=== PATIENT | female | born 1945 | race American Indian/Alaskan Native ===

== ENCOUNTER 2018-06-12 18:16 | Emergency (ER) | payer MEDICARE ==
[2018-06-12 19:06] LABS: Hemoglobin 16.9 gm/dl (10.1-14.3); Mean Corpuscular HGB Conc 34 % (30-34); Mean Corpuscular Volume 91 fl (79-97); Platelet Count 313 K/mm3 (140-440); Red Blood Count 5.42 M/mm3 (3.65-5.03); Red Cell Distribution Width 13.2 % (13.2-15.2)
[2018-06-12 19:17] LABS: Partial Thromboplastin Time 36.7 Sec. (24.2-36.6); Thrombin Time 14.8 Sec. (15.1-19.6)
[2018-06-12 19:21] LABS: Creatine Kinase MB 91.7 ng/mL (0.0-4.0)
--- NOTE | 2018-06-12 19:39 | Cat Scan Report ---
FINAL REPORT EXAM: CT HEAD/BRAIN WO CON HISTORY: right sided weakness, on floor for 2 days TECHNIQUE: CT head without contrast PRIORS: None. FINDINGS: No acute intra-axial or extra-axial hemorrhage is identified. There is no evidence of midline shift or mass effect. The ventricles and sulci are within normal limits. Zuleta-white matter differentiation is intact. No acute parenchymal abnormalities seen. Bony calvarium is grossly intact. Visualized portions of the mastoids and paranasal sinuses are unre markable. IMPRESSION: Negative CT head
[2018-06-12 20:07] LABS: Basophils % (Manual) 0 % (0.0-1.8); Eosinophils % (Manual) 0 % (0.0-4.3); Total Cells Counted 200
[2018-06-12 20:08] LABS: Ovalocytes Few; Poikilocytosis Few
[2018-06-12] MEDS ORDERED: NACL 0.9% 1000 ML 1,000 ML IV ONE ×3 (20:10→23:05)
[2018-06-12] MEDS ORDERED: ROCEPHIN/NS 2 GM/100 ML 2 GM/100 ML BAG IV ONE (20:12)
[2018-06-12] MEDS ORDERED: NACL 0.9% 1000 ML IV ONE (20:18)
--- NOTE | 2018-06-12 20:21 | Emergency Department Report ---
HPI - General Chief Complaint: Fall Time Seen by Provider: 06/12/18 18:26 - HPI HPI: This is a 73-year-old black female who was talked to the ED with generalized weakness, patient had fallen 2 days ago and has not been able to get off the floor. She laid on the floor until she was found today by her neighbors. Patient complained of feeling cold, no nausea no vomiting. She denies any chest pain, shortness of breath. ED Past Medical Hx - Past Medical History Hx Hypertension: Yes Additional medical history: Sleep apnea, "stress induced" muscle spasms - Social History Smoking Status: Never Smoker Substance Use Type: None ED Review of Systems ROS: Stated complaint: RIGHT SIDE WEAKNESS/FALL Other details as noted in HPI Comment: All other systems reviewed and negative Respiratory: denies: cough Cardiovascular: denies: chest pain Genitourinary: denies: urgency Skin: denies: rash Neurological: weakness, numbness, paresthesias, abnormal gait. denies: headache Physical Exam - Physical Exam Vital Signs: Vital Signs 06/12/18 06/12/18 18:37 20:10 Pulse Rate 115 H 108 H Respiratory 16 16 Rate Blood Pressure 129/57 Blood Pressure 139/53 [Left] O2 Sat by Pulse 96 99 Oximetry Physical Exam: - General Limitations: No Limitations General appearance: alert, in mild distress - Head Head exam: Present: atraumatic, normocephalic - Eye Eye exam: Present: normal appearance - ENT ENT exam: Present: mucous membranes moist - Neck Neck exam: Present: normal inspection - Respiratory Respiratory exam: Present: normal lung sounds bilaterally. Absent: respiratory distress - Cardiovascular Cardiovascular Exam: Present: regular rate, normal rhythm. Absent: systolic murmur, diastolic murmur, rubs, gallop - GI/Abdominal GI/Abdominal exam: Present: soft, normal bowel sounds - Extremities Exam Extremities exam: Present: normal inspection - Back Exam Back exam: Present: normal inspection - Neurological Exam Neurological exam: Present: alert, oriented X3 - Psychiatric Psychiatric exam: Present: normal affect, normal mood - Skin Skin exam: Present: warm, dry, intact, normal color. Absent: rash ED Course Vital Signs 06/12/18 06/12/18 18:37 20:10 Pulse Rate 115 H 108 H Respiratory 16 16 Rate Blood Pressure 129/57 Blood Pressure 139/53 [Left] O2 Sat by Pulse 96 99 Oximetry - Reevaluation(s) Reevaluation #1: 06/12/18 23:02 Patient is a [facility] patient, after I called on-call physician for [place] today today recommended that patient be transferred to [place]. Reevaluation #2: 06/12/18 23:05 I spoke with patient regarding the transfer she was understanding and agree with the plan. ED Medical Decision Making - Lab Data Result diagrams: 06/12/18 18:46 06/12/18 18:48 Critical care attestation.: If time is entered above; I have spent that time in minutes in the direct care of this critically ill patient, excluding procedure time. ED Disposition Clinical Impression: Rhabdomyolysis Qualifiers: Rhabdomyolysis type: non-traumatic Qualified Code(s): M62.82 - Rhabdomyolysis Leukocytosis Qualifiers: Leukocytosis type: other Qualified Code(s): D72.828 - Other elevated white blood cell count Disposition: DC/TX-70 ANOTHER TYPE HLTHCARE Is pt being admited?: No Does the pt Need Aspirin: No Condition: Stable Referrals: PRIMARY CARE, [Primary Care Provider] - 3-5 Days
[2018-06-12] MEDS ORDERED: ZITHROMAX 500 MG in NACL 0.9% 250ML 250 ML IV SCH (21:00)
--- NOTE | 2018-06-12 21:35 | XRay Report ---
FINAL REPORT EXAM: XR CHEST 1V AP HISTORY: ams TECHNIQUE: upright single view chest PRIORS: Comparison is dated April 24, 2018 FINDINGS: Cardiac and mediastinal contours are unremarkable. No focal pulmonary infiltrate is identified. No pleural fluid collection seen. Pulmonary vasculature is unremarkable. Noted is a marked scoliosis of the thoracolumbar spine IMPRESSION: No acute abnormality identified in the chest
[2018-06-12 21:50] LABS: Hemolysis Index 0
[2018-06-12 22:30] LABS: Blood Urea Nitrogen 29 mg/dL (7-17)
[2018-06-12 22:31] LABS: Alanine Aminotransferase 85 units/L (7-56); Albumin 3.6 g/dL (3.9-5); BUN/Creatinine Ratio 36; Calcium 8.1 mg/dL (8.4-10.2)
[2018-06-12 23:22] LABS: Bacteria,Urine 2+ /HPF (Negative); Bilirubin,Urine NEG (Negative); Blood,Urine LG (Negative); Color,Urine Amber (Yellow); Hyaline Casts,Urine 7 /LPF; Mucus,Urine FEW /HPF; Urobilinogen,Urine < 2.0 mg/dL (<2.0)
[2018-06-13 01:08] VITALS: BP 139/66
== END 2018-06-13 01:08 | disposition other institution (70) ==
LOC: ED 18:16
DX: M62.82 Rhabdomyolysis (principal); D72.828 Other elevated white blood cell count; I10 Essential (primary) hypertension
CPT/HCPCS: 36415; 70450; 71045; 80053; 81001; 82140; 82550; 82553; 82962; 84484; 85007; 85025; 85610; 85670; 85730; 86850; 86900; 86901; 87040; 87086; 93005; 93010; 96365; 96375; 99285; J0456; J0696; J7030; J7050

== ENCOUNTER 2018-07-30 15:08 | Emergency (ER) | payer MEDICARE ==
[2018-07-30] MEDS ORDERED: NACL 0.9% 500 ML 500 ML IV ONE (15:32)
[2018-07-30] MEDS ORDERED: NACL 0.9% 1000 ML 1,000 ML ONE (15:35)
[2018-07-30 16:10] LABS: Hematocrit 37.3 % (30.3-42.9); Hemoglobin 11.7 gm/dl (10.1-14.3); Mean Corpuscular HGB Conc 32 % (30-34); Mean Corpuscular Volume 99 fl (79-97); Platelet Count 287 K/mm3 (140-440); Red Blood Count 3.78 M/mm3 (3.65-5.03); Red Cell Distribution Width 14.1 % (13.2-15.2)
[2018-07-30 16:20] LABS: INR 0.98 (0.87-1.13)
[2018-07-30 16:41] LABS: Basophils % (Manual) 0 % (0.0-1.8); Eosinophils % (Manual) 0 % (0.0-4.3); Total Cells Counted 100
[2018-07-30 16:42] LABS: Poikilocytosis Few
[2018-07-30] MEDS ORDERED: NACL 0.9% 1000 ML IV ONE (17:21)
[2018-07-30] MEDS ORDERED: ROCEPHIN/NS 1 GM/50 ML 1 GM/50 ML BAG IV SCH (17:21)
--- NOTE | 2018-07-30 17:29 | Emergency Department Report ---
ED General Adult HPI - General Chief complaint: Dyspnea/Respdistress Stated complaint: FALL Time Seen by Provider: 07/30/18 15:34 Source: patient, EMS Mode of arrival: Stretcher Limitations: Other - History of Present Illness Initial comments: Mrs. Araya is a 73-year-old female with history of hypertension, diabetes muscle spasm who presents after prolonged immobilization for the past 4 days. Mrs. Araya explained that she slid out of bed. She was unable to get up on her own. She has been on the floor has 4 days. Her physical therapist heard yelling from outside the home. Arranged to have the door open. EMS contacted. brought patient to the ED. Ms. Araya has diffuse pain generalized. She has headache and neck pain. -: days(s) (4) Location: head Radiation: neck Severity scale (0 -10): 5 Worsens with: none Associated Symptoms: malaise, weakness - Related Data Home Medications Medication Instructions Recorded Confirmed Last Taken Acetaminophen [Tylenol] 500 mg PO Q6HR PRN 07/30/18 07/30/18 Unknown Alendronate Sodium [Fosamax] 70 mg PO QWEEK 07/30/18 07/30/18 Unknown Atorvastatin Calcium [Lipitor] 40 mg PO DAILY 07/30/18 07/30/18 Unknown Ergocalciferol (Vitamin D2) 50,000 unit PO QWEEK 07/30/18 07/30/18 Unknown [Drisdol] Furosemide [Lasix] 20 mg PO QDAY 07/30/18 07/30/18 Unknown Losartan [Cozaar] 100 mg PO QDAY 07/30/18 07/30/18 Unknown Maprotiline HCl 25 mg PO QPM 07/30/18 07/30/18 Unknown Meclizine [Antivert] 12.5 mg PO BID PRN 07/30/18 07/30/18 Unknown Potassium Chloride [Klor-Con M20] 20 meq PO QDAY 07/30/18 07/30/18 Unknown Trihexyphenidyl HCl 5 mg PO BID 07/30/18 07/30/18 Unknown tiZANidine [Zanaflex] 2 - 4 mg PO HS PRN 07/30/18 07/30/18 Unknown traMADol [Ultram] 50 mg PO Q6HR PRN 07/30/18 07/30/18 Unknown Allergies Allergy/AdvReac Type Severity Reaction Status Date / Time No Known Allergies Allergy Verified 06/12/18 18:37 ED Review of Systems ROS: Stated complaint: FALL Other details as noted in HPI Comment: All other systems reviewed and negative Constitutional: malaise Neurological: headache ED Past Medical Hx - Past Medical History Previous Medical History?: Yes Hx Hypertension: Yes Hx Diabetes: Yes (DM2) Additional medical history: Sleep apnea, "stress induced" muscle spasms - Social History Smoking Status: Never Smoker Substance Use Type: None - Medications Home Medications: Home Medications Medication Instructions Recorded Confirmed Last Taken Type Acetaminophen [Tylenol] 500 mg PO Q6HR PRN 07/30/18 07/30/18 Unknown History Alendronate Sodium [Fosamax] 70 mg PO QWEEK 07/30/18 07/30/18 Unknown History Atorvastatin Calcium [Lipitor] 40 mg PO DAILY 07/30/18 07/30/18 Unknown History Ergocalciferol (Vitamin D2) 50,000 unit PO QWEEK 07/30/18 07/30/18 Unknown History [Drisdol] Furosemide [Lasix] 20 mg PO QDAY 07/30/18 07/30/18 Unknown History Losartan [Cozaar] 100 mg PO QDAY 07/30/18 07/30/18 Unknown History Maprotiline HCl 25 mg PO QPM 07/30/18 07/30/18 Unknown History Meclizine [Antivert] 12.5 mg PO BID PRN 07/30/18 07/30/18 Unknown History Potassium Chloride [Klor-Con M20] 20 meq PO QDAY 07/30/18 07/30/18 Unknown History Trihexyphenidyl HCl 5 mg PO BID 07/30/18 07/30/18 Unknown History tiZANidine [Zanaflex] 2 - 4 mg PO HS PRN 07/30/18 07/30/18 Unknown History traMADol [Ultram] 50 mg PO Q6HR PRN 07/30/18 07/30/18 Unknown History ED Physical Exam - General Limitations: Other General appearance: alert, in no apparent distress, other (appears very ill elderly speaks in a whisper) - Head Head exam: Present: atraumatic, normocephalic - Eye Eye exam: Present: normal appearance - ENT ENT exam: Present: mucous membranes dry - Neck Neck exam: Present: normal inspection, full ROM - Respiratory Respiratory exam: Present: normal lung sounds bilaterally. Absent: respiratory distress, wheezes, rales, rhonchi - Cardiovascular Cardiovascular Exam: Present: regular rate, normal rhythm, tachycardia, normal heart sounds. Absent: systolic murmur, diastolic murmur, rubs, gallop - GI/Abdominal GI/Abdominal exam: Present: soft, normal bowel sounds. Absent: distended, tenderness, guarding, rebound - Extremities Exam Extremities exam: Present: normal inspection - Back Exam Back exam: Present: normal inspection - Neurological Exam Neurological exam: Present: alert, oriented X3 - Psychiatric Psychiatric exam: Present: normal affect, normal mood - Skin Skin exam: Present: warm, dry, intact, normal color. Absent: rash ED Course Vital Signs 07/30/18 07/30/18 07/30/18 15:21 15:26 15:31 Pulse Rate 117 H 121 H Respiratory 19 16 17 Rate Blood Pressure 53/16 Blood Pressure 53/16 [Right] O2 Sat by Pulse 100 100 100 Oximetry 07/30/18 07/30/18 07/30/18 15:45 16:00 16:24 Pulse Rate 120 H 120 H Respiratory 15 20 Rate Blood Pressure 159/60 157/55 157/55 Blood Pressure [Right] O2 Sat by Pulse 100 Oximetry 07/30/18 07/30/18 07/30/18 16:30 16:45 17:00 Pulse Rate 112 H 109 H 102 H Respiratory 22 20 16 Rate Blood Pressure 163/53 163/53 149/41 Blood Pressure [Right] O2 Sat by Pulse 100 100 98 Oximetry 07/30/18 07/30/18 07/30/18 17:15 17:30 17:45 Pulse Rate 103 H 100 H 103 H Respiratory 19 17 18 Rate Blood Pressure 149/41 143/52 143/52 Blood Pressure [Right] O2 Sat by Pulse 100 98 Oximetry 07/30/18 07/30/18 07/30/18 18:00 18:15 18:30 Pulse Rate 105 H 102 H 105 H Respiratory 18 16 25 H Rate Blood Pressure 140/46 140/46 164/49 Blood Pressure [Right] O2 Sat by Pulse 100 Oximetry ED Medical Decision Making - Lab Data Result diagrams: 07/30/18 15:59 07/30/18 17:05 - EKG Data 07/30/18 17:27 EKG obtained at 1544 Sinus tachycardia rate 120 beats a minute left axis deviation no ST elevation no signs of ischemia - Medical Decision Making I was called to the bedside for severe hypotension 53/10. I spoke with EMS. I obtain history from both EMS and nursing staff. I was able to palpate radial and DP pulses. I felt that this was a spurious reading. Repeat blood pressure was actually hypertensive 153/70. Patient has acute rhabdomyolysis obvious hypovolemia dehydration with elevated BUN CK approximately 4500. Persistent leukocytosis since June concerning for hematological disorder. Patient did receive a sepsis bundle including ceftriaxone IV fluid I spoke with [place] physician in order to arrange transfer to outside hospital for admission. Accepting physician be Dr. Lowe [facility] Critical Care Time: Yes Critical care time in (mins) excluding proc time.: 50 Critical care attestation.: If time is entered above; I have spent that time in minutes in the direct care of this critically ill patient, excluding procedure time. 50 minutes of critical care time excluding procedures were used in the care of the patient. Patient required multiple assessments and interventions. I reviewed the electronic medical record. I spoke with consultants involved in the care of the patient. ED Disposition Clinical Impression: Rhabdomyolysis, Prolonged immobilization, Leukocytosis, SIRS (systemic inflammatory response syndrome) Disposition: DC/TX-70 ANOTHER TYPE HLTHCARE Is pt being admited?: No Does the pt Need Aspirin: No Condition: Stable
[2018-07-30 17:33] LABS: Alanine Aminotransferase 105 units/L (7-56); BUN/Creatinine Ratio 82; Blood Urea Nitrogen 41 mg/dL (7-17); Calcium 8.5 mg/dL (8.4-10.2); Hemolysis Index 15
--- NOTE | 2018-07-30 17:43 | Cat Scan Report ---
FINAL REPORT EXAM: CT CERVICAL SPINE WO CON HISTORY: fall neck pain TECHNIQUE: Axial helical imaging through the spine with sagittal and coronal reformatted images obta ined. Comparison: None FINDINGS: There is reversal of the normal lordotic curve of the cervical spine. There dextrocurvature of the cervical spine. There is mild anterolisthesis of C3 on C4 secondary to degenerative facet change at this level. The vertebral heights are maintained. There is loss of height of the disc spaces throughout the cervical spine with relative sparing of the C2-C3 and C7-T1 discs. There is multiple level degenerative facet change. Visualization detail of the contents of the cervical canal is limited by artifact. There appears to b e cervical canal stenosis at the cerebral 3-C4 level secondary to spondylitic change. There is no evidence of fracture or posttraumatic subluxation. IMPRESSION: 1. No evidence of fracture or posttraumatic subluxation. 2. Cervical spondylosis.
--- NOTE | 2018-07-30 17:43 | XRay Report ---
FINAL REPORT EXAM: XR CHEST 1V AP HISTORY: possible Sepsis TECHNIQUE: Frontal portable view of the chest Comparison: Chest x-ray dated June 12, 2018 FINDINGS: There is mild prominence of the interstitial markings in both lungs similar in appearance to the prev ious study. There is no evidence of focal infiltrate, pneumothorax or pleural fluid collection. The cardiac silhouette appears to be normal size. The thoracic aorta is tortuous. The bony structures are notable for levocurvature of the lower thoracic and upper lumbar spine. The b an structures are osteopenic. IMPRESSION: 1. No evidence of an acute pulmonary process. No significant change since previous study dated June 12, 2018.
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
[2018-07-30 20:42] LABS: Bilirubin,Urine NEG (Negative); Blood,Urine MOD (Negative); Color,Urine Yellow (Yellow); Mucus,Urine 2+ /HPF; Urobilinogen,Urine < 2.0 mg/dL (<2.0)
[2018-07-30] MEDS ORDERED: NORCO 5/325 ONE (20:48)
[2018-07-30 20:56] VITALS: BP 139/56
[2018-07-30] MEDS ORDERED: NORCO 5/325 PO ONE (21:08)
== END 2018-07-30 21:12 | disposition other institution (70) ==
LOC: ED 15:08
DX: R65.10 Systemic inflammatory response syndrome (SIRS) of non-infectious origin without acute organ dysfunction (principal); M62.82 Rhabdomyolysis; D72.829 Elevated white blood cell count, unspecified; I10 Essential (primary) hypertension; E11.9 Type 2 diabetes mellitus without complications; G47.30 Sleep apnea, unspecified; E86.1 Hypovolemia
CPT/HCPCS: 36415; 70450; 71045; 72125; 80053; 81001; 82140; 82550; 82803; 85007; 85025; 85610; 87040; 87086; 93005; 93010; 96361; 96365; 96366; 99291; J0696; J7030

== ENCOUNTER 2018-08-30 09:18 | Inpatient (IN) | payer MEDICARE ==
[2018-08-30] MEDS ORDERED: NACL 0.9% 500 ML 500 ML IV ONE (10:14)
--- NOTE | 2018-08-30 10:22 | Emergency Department Report ---
ED General Adult HPI - General Chief complaint: Weakness Stated complaint: WEAKNESS Time Seen by Provider: 08/30/18 10:12 Source: patient, EMS Mode of arrival: Stretcher Limitations: No Limitations - History of Present Illness Initial comments: This is a 73-year-old female who pushed her emergency response button on all [employer] like device summoning EMS this morning. She states that she has been recently discharged from [facility]. She is a poor historian. 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 She also has CVA listed as a possible diagnosis. However she does not actually have EMR related documents just handwritten notes. The patient states that she was discharged from rehabilitation 2 days ago. She has not been eating and drinking very well since. I think she is marginally able to provide self care. She reports no home health or family. She states that she was trying to get to the bathroom when she lowered to the floor without injury. She denies loss of consciousness. She states that she was simply too weak to ambulate. She is not complaining of pain at the time of my encounter. -: Gradual, days(s) Severity scale (0 -10): 0 Associated Symptoms: weakness - Related Data Home Medications Medication Instructions Recorded Confirmed Last Taken Acetaminophen [Tylenol] 500 mg PO Q6HR PRN 07/30/18 07/30/18 Unknown Alendronate Sodium [Fosamax] 70 mg PO QWEEK 07/30/18 07/30/18 Unknown Atorvastatin Calcium [Lipitor] 40 mg PO DAILY 07/30/18 07/30/18 Unknown Ergocalciferol (Vitamin D2) 50,000 unit PO QWEEK 07/30/18 07/30/18 Unknown [Drisdol] Furosemide [Lasix] 20 mg PO QDAY 07/30/18 07/30/18 Unknown Losartan [Cozaar] 100 mg PO QDAY 07/30/18 07/30/18 Unknown Maprotiline HCl 25 mg PO QPM 07/30/18 07/30/18 Unknown Meclizine [Antivert] 12.5 mg PO BID PRN 07/30/18 07/30/18 Unknown Potassium Chloride [Klor-Con M20] 20 meq PO QDAY 07/30/18 07/30/18 Unknown Trihexyphenidyl HCl 5 mg PO BID 07/30/18 07/30/18 Unknown tiZANidine [Zanaflex] 2 - 4 mg PO HS PRN 07/30/18 07/30/18 Unknown traMADol [Ultram] 50 mg PO Q6HR PRN 07/30/18 07/30/18 Unknown Allergies Allergy/AdvReac Type Severity Reaction Status Date / Time No Known Allergies Allergy Verified 08/30/18 09:22 ED Review of Systems ROS: Stated complaint: WEAKNESS Other details as noted in HPI Constitutional: weakness (possible near-syncope). denies: chills, fever Eyes: denies: eye pain, eye discharge, vision change ENT: denies: ear pain, throat pain Respiratory: denies: cough, shortness of breath, wheezing Cardiovascular: denies: chest pain, palpitations Endocrine: no symptoms reported Gastrointestinal: other (poor by mouth intake). denies: abdominal pain, nausea, diarrhea Genitourinary: denies: urgency, dysuria, discharge Musculoskeletal: denies: back pain, joint swelling, arthralgia Skin: denies: rash, lesions Neurological: denies: headache, weakness, paresthesias Psychiatric: denies: anxiety, depression Hematological/Lymphatic: denies: easy bleeding, easy bruising ED Past Medical Hx - Past Medical History Hx Hypertension: Yes Hx Diabetes: Yes (DM2) Additional medical history: Sleep apnea, "stress induced" muscle spasms - Social History Smoking Status: Never Smoker Substance Use Type: None - Medications Home Medications: Home Medications Medication Instructions Recorded Confirmed Last Taken Type Acetaminophen [Tylenol] 500 mg PO Q6HR PRN 07/30/18 07/30/18 Unknown History Alendronate Sodium [Fosamax] 70 mg PO QWEEK 07/30/18 07/30/18 Unknown History Atorvastatin Calcium [Lipitor] 40 mg PO DAILY 07/30/18 07/30/18 Unknown History Ergocalciferol (Vitamin D2) 50,000 unit PO QWEEK 07/30/18 07/30/18 Unknown History [Drisdol] Furosemide [Lasix] 20 mg PO QDAY 07/30/18 07/30/18 Unknown History Losartan [Cozaar] 100 mg PO QDAY 07/30/18 07/30/18 Unknown History Maprotiline HCl 25 mg PO QPM 07/30/18 07/30/18 Unknown History Meclizine [Antivert] 12.5 mg PO BID PRN 07/30/18 07/30/18 Unknown History Potassium Chloride [Klor-Con M20] 20 meq PO QDAY 07/30/18 07/30/18 Unknown History Trihexyphenidyl HCl 5 mg PO BID 07/30/18 07/30/18 Unknown History tiZANidine [Zanaflex] 2 - 4 mg PO HS PRN 07/30/18 07/30/18 Unknown History traMADol [Ultram] 50 mg PO Q6HR PRN 07/30/18 07/30/18 Unknown History ED Physical Exam - General Limitations: No Limitations General appearance: alert, in no apparent distress, other (difficulty sitting up on the gurney) - Head Head exam: Present: atraumatic, normocephalic - Eye Eye exam: Present: normal appearance. Absent: scleral icterus - ENT ENT exam: Present: mucous membranes moist - Neck Neck exam: Present: normal inspection. Absent: tenderness, meningismus - Respiratory Respiratory exam: Present: normal lung sounds bilaterally. Absent: respiratory distress - Cardiovascular Cardiovascular Exam: Present: regular rate, normal rhythm. Absent: systolic murmur, diastolic murmur, rubs, gallop - GI/Abdominal GI/Abdominal exam: Present: soft, normal bowel sounds. Absent: distended, te nderness, guarding, rebound, rigid - Extremities Exam Extremities exam: Present: normal inspection - Back Exam Back exam: Present: normal inspection - Neurological Exam Neurological exam: Present: oriented X3, CN II-XII intact (exam somewhat limited). Absent: alert (lethargic), motor sensory deficit (does not appear to be lateralizing) - Psychiatric Psychiatric exam: Present: depressed, other (somewhat tearful) - Skin Skin exam: Present: warm, dry, intact, normal color. Absent: rash ED Course Vital Signs 08/30/18 08/30/18 08/30/18 09:16 09:20 09:22 Temperature 97.9 F Pulse Rate 118 H 120 H 112 H Respiratory 22 21 20 Rate Blood Pressure 156/84 156/84 Blood Pressure [Left] O2 Sat by Pulse 86 97 97 Oximetry 08/30/18 08/30/18 08/30/18 09:26 09:30 09:36 Temperature Pulse Rate 110 H 112 H 111 H Respiratory 14 18 16 Rate Blood Pressure 136/83 136/83 Blood Pressure [Left] O2 Sat by Pulse 96 97 97 Oximetry 08/30/18 08/30/18 08/30/18 09:40 09:45 09:50 Temperature Pulse Rate 106 H 108 H 107 H Respiratory 21 17 20 Rate Blood Pressure 114/72 127/67 Blood Pressure [Left] O2 Sat by Pulse 97 99 97 Oximetry 08/30/18 08/30/18 08/30/18 09:56 10:00 10:06 Temperature Pulse Rate 114 H 110 H 115 H Respiratory 21 17 22 Rate Blood Pressure 127/67 127/67 123/74 Blood Pressure [Left] O2 Sat by Pulse 95 97 97 Oximetry 08/30/18 08/30/18 11:10 14:08 Temperature Pulse Rate 102 H 127 H Respiratory 22 22 Rate Blood Pressure Blood Pressure 167/79 174/78 [Left] O2 Sat by Pulse 96 97 Oximetry ED Medical Decision Making - Lab Data Result diagrams: 08/30/18 10:25 08/30/18 10:25 Laboratory Results - last 24 hr 08/30/18 08/30/18 08/30/18 10:25 10:25 10:25 WBC 9.4 RBC 3.68 Hgb 11.7 Hct 33.7 MCV 92 MCH 32 MCHC 35 H RDW 13.9 Plt Count 328 Lymph % (Auto) 17.3 [facility] % (Auto) 7.6 H Eos % (Auto) 0.5 Baso % (Auto) 0.9 Lymph # 1.6 [facility] # 0.7 Eos # 0.0 Baso # 0.1 Seg Neutrophils % 73.7 H Seg Neutrophils # 6.9 PT 13.1 INR 0.94 APTT 23.9 L D-Dimer 588.77 H VBG pH Sodium Potassium Chloride Carbon Dioxide Anion Gap BUN Creatinine Estimated GFR BUN/Creatinine Ratio Glucose Lactic Acid 0.90 Calcium Magnesium Total Bilirubin Direct Bilirubin Indirect Bilirubin AST ALT Alkaline Phosphatase Total Creatine Kinase CK-MB (CK-2) CK-MB (CK-2) Rel Index Troponin T NT-Pro-B Natriuret Pep Total Protein Albumin Albumin/Globulin Ratio 08/30/18 08/30/18 08/30/18 10:25 10:25 10:25 WBC RBC Hgb Hct MCV MCH MCHC RDW Plt Count Lymph % (Auto) [facility] % (Auto) Eos % (Auto) Baso % (Auto) Lymph # [facility] # Eos # Baso # Seg Neutrophils % Seg Neutrophils # PT INR APTT D-Dimer VBG pH 7.474 H Sodium 140 Potassium 3.2 L Chloride 103.1 Carbon Dioxide 25 Anion Gap 15 BUN 5 L Creatinine 0.4 L Estimated GFR > 60 BUN/Creatinine Ratio 13 Glucose 103 H Lactic Acid Calcium 9.1 Magnesium 2.00 Total Bilirubin 0.50 Direct Bilirubin < 0.2 Indirect Bilirubin 0.3 AST 17 ALT 15 Alkaline Phosphatase 81 Total Creatine Kinase 84 CK-MB (CK-2) 2.3 CK-MB (CK-2) Rel Index 2.7 Troponin T < 0.010 NT-Pro-B Natriuret Pep 124.4 Total Protein 6.6 Albumin 4.0 Albumin/Globulin Ratio 1.5 Critical care attestation.: If time is entered above; I have spent that time in minutes in the direct care of this critically ill patient, excluding procedure time. ED Disposition Clinical Impression: Near syncope, Volume depletion, Elevated d-dimer, Generalized weakness Disposition: OP ADMIT IP TO THIS HOSP Is pt being admited?: Yes Does the pt Need Aspirin: Yes Condition: Stable Time of Disposition: 14:58
[2018-08-30 10:59] LABS: Basophils # (Auto) 0.1 K/mm3 (0.0-0.1); Basophils % (Auto) 0.9 % (0.0-1.8); Eosinophils % (Auto) 0.5 % (0.0-4.3); Hematocrit 33.7 % (30.3-42.9); Hemoglobin 11.7 gm/dl (10.1-14.3); Lymphocytes # (Auto) 1.6 K/mm3 (1.2-5.4); Lymphocytes % (Auto) 17.3 % (13.4-35.0); Mean Corpuscular HGB Conc 35 % (30-34); Mean Corpuscular Volume 92 fl (79-97); Monocytes # (Auto) 0.7 K/mm3 (0.0-0.8); Monocytes % (Auto) 7.6 % (0.0-7.3); Platelet Count 328 K/mm3 (140-440); Red Blood Count 3.68 M/mm3 (3.65-5.03); Red Cell Distribution Width 13.9 % (13.2-15.2)
[2018-08-30 11:07] LABS: Alanine Aminotransferase 15 units/L (7-56); BUN/Creatinine Ratio 13; Bilirubin,Direct < 0.2 mg/dL (0-0.2); Blood Urea Nitrogen 5 mg/dL (7-17); Calcium 9.1 mg/dL (8.4-10.2); Hemolysis Index 8
[2018-08-30 11:24] LABS: Creatine Kinase MB 2.3 ng/mL (0.0-4.0); INR 0.94 (0.87-1.13)
[2018-08-30 11:25] LABS: Partial Thromboplastin Time 23.9 Sec. (24.2-36.6)
--- NOTE | 2018-08-30 12:29 | Cat Scan Report ---
PROCEDURE: CT HEAD/BRAIN WO CON TECHNIQUE: CT examination of the head without IV contrast HISTORY: syncope COMPARISONS: 07/30/2018 FINDINGS: No acute air-fluid level visualized in the included air-filled sinuses. Bone windows demonstrate no acute fracture. There is ventricular and sulcal prominence compatible with global cerebrocortical atrophy. The brain contains no mass, mass effect, hemorrhage, or acute infarct. There is no extra-axial intracranial bleed, brain bleed, or midline shift. IMPRESSION: No acute CVA, intracranial bleed, or brain mass This document is electronically signed by Nato Serra MD., August 30 2018 12:27:14 PM ET
[2018-08-30 12:38] LABS: Bilirubin,Urine NEG (Negative); Blood,Urine NEG (Negative); Color,Urine Straw (Yellow); Protein,Urine <15 mg/dL mg/dL (Negative); Urobilinogen,Urine < 2.0 mg/dL (<2.0)
--- NOTE | 2018-08-30 15:02 | XRay Report ---
PROCEDURE: XR CHEST 1V AP TECHNIQUE: Single AP view of the chest HISTORY: possible Sepsis COMPARISONS: 07/30/2018 FINDINGS: Cardiomediastinal silhouette is within normal limits in appearance. No pulmonary infiltrate, effusion , or pneumothorax. No acute osseous abnormality IMPRESSION: No pulmonary infiltrates are identified. This document is electronically signed by Sudha Zepeda MD., August 30 2018 01:28:44 PM ET
[2018-08-30] MEDS: ATIVAN IV PRN (15:51)
--- NOTE | 2018-08-30 16:02 | History and Physical Report ---
History of Present Illness Date of examination: 08/30/18 Date of admission: 08/30/18 Chief complaint: Generalized weakness/near syncope History of present illness: 73-year-old female patient with significant past medical history of hypertension dyslipidemia Recently admitted to [facility] discharge from rehabilitation 2 days ago and this alone, was brought to the emergency room by EMS when the patient alerted her [employer] emergency button. As per EMS note patient complained of generalized weakness, No history suggestive of loss of consciousness, nausea or vomiting, chest pain or palpitations Initial workup in the ED CT scan negative for acute abnormality Mild hypokalemia Past History Past Medical History: hypertension, hyperlipidemia Past Surgical History: No surgical history Social history: denies: smoking, alcohol abuse, prescription drug abuse Family history: hypertension Medications and Allergies Allergies Allergy/AdvReac Type Severity Reaction Status Date / Time No Known Allergies Allergy Verified 08/30/18 09:22 Home Medications Medication Instructions Recorded Confirmed Last Taken Type Acetaminophen [Tylenol] 500 mg PO Q6HR PRN 07/30/18 07/30/18 Unknown History Alendronate Sodium [Fosamax] 70 mg PO QWEEK 07/30/18 07/30/18 Unknown History Atorvastatin Calcium [Lipitor] 40 mg PO DAILY 07/30/18 07/30/18 Unknown History Ergocalciferol (Vitamin D2) 50,000 unit PO QWEEK 07/30/18 07/30/18 Unknown History [Drisdol] Furosemide [Lasix] 20 mg PO QDAY 07/30/18 07/30/18 Unknown History Losartan [Cozaar] 100 mg PO QDAY 07/30/18 07/30/18 Unknown History Maprotiline HCl 25 mg PO QPM 07/30/18 07/30/18 Unknown History Meclizine [Antivert] 12.5 mg PO BID PRN 07/30/18 07/30/18 Unknown History Potassium Chloride [Klor-Con M20] 20 meq PO QDAY 07/30/18 07/30/18 Unknown History Trihexyphenidyl HCl 5 mg PO BID 07/30/18 07/30/18 Unknown History tiZANidine [Zanaflex] 2 - 4 mg PO HS PRN 07/30/18 07/30/18 Unknown History traMADol [Ultram] 50 mg PO Q6HR PRN 07/30/18 07/30/18 Unknown History Active Meds: Active Medications Lorazepam (Ativan) 1 mg IV Q3H PRN PRN Reason: Anxiety Last Admin: 08/30/18 15:51 Dose: 1 mg Documented by: Review of Systems Constitutional: weight loss, fatigue, weakness Ears, nose, mouth and throat: nasal congestion, nasal discharge Cardiovascular: no chest pain, no orthopnea, no palpitations Respiratory: no cough, no cough with sputum Gastrointestinal: no nausea, no vomiting Musculoskeletal: no neck stiffness, no shooting arm pain, no myalgias, no arthritis Integumentary: no rash, no lesions Neurological: weakness Psychiatric: no memory loss, no depression Endocrine: no cold intolerance, no heat intolerance, no polydipsia, no polyuria Hematologic/Lymphatic: no easy bruising, no easy bleeding Allergic/Immunologic: no urticaria, no allergic rhinitis Exam - Constitutional Vitals: Temp Pulse Resp BP Pulse Ox 97.9 F 127 H 22 174/78 97 08/30/18 09:22 08/30/18 14:08 08/30/18 14:08 08/30/18 14:08 08/30/18 14:08 General appearance: Present: no acute distress, well-nourished, cachectic - EENT Eyes: Present: PERRL, EOM intact - Neck Neck: Present: supple, normal ROM - Respiratory Respiratory effort: normal Respiratory: bilateral: diminished, negative: rales, rhonchi, wheezing - Cardiovascular Rhythm: regular Heart Sounds: Present: S1 & S2 - Extremities Extremities: no ischemia, No edema - Abdominal General gastrointestinal: Present: soft, non-tender, non-distended, normal bowel sounds - Integumentary Integumentary: Present: clear, warm - Musculoskeletal Musculoskeletal: strength equal bilaterally, generalized weakness - Psychiatric Psychiatric: cooperative - Neurologic Neurologic: moves all extremities Results - Labs CBC & Chem 7: 08/30/18 10:25 08/30/18 10:25 Labs: Abnormal lab results 08/30/18 08/30/18 08/30/18 Range/Units 10:25 10:25 10:25 MCHC 35 H (30-34) % Logan % (Auto) 7.6 H (0.0-7.3) % Seg Neutrophils % 73.7 H (40.0-70.0) % APTT 23.9 L (24.2-36.6) Sec. D-Dimer 588.77 H (0-234) ng/mlDDU VBG pH 7.474 H (7.320-7.420) Potassium (3.6-5.0) mmol/L BUN (7-17) mg/dL Creatinine (0.7-1.2) mg/dL Glucose (65-100) mg/dL Urine pH (5.0-7.0) 08/30/18 08/30/18 Range/Units 10:25 11:32 MCHC (30-34) % Logan % (Auto) (0.0-7.3) % Seg Neutrophils % (40.0-70.0) % APTT (24.2-36.6) Sec. D-Dimer (0-234) ng/mlDDU VBG pH (7.320-7.420) Potassium 3.2 L (3.6-5.0) mmol/L BUN 5 L (7-17) mg/dL Creatinine 0.4 L (0.7-1.2) mg/dL Glucose 103 H (65-100) mg/dL Urine pH 8.0 H (5.0-7.0) Assessment and Plan --Generalized weakness and debility Nutrition supplement, physical therapy, occupational therapy, fall precautions. --No syncope; secondary to generalized weakness; physical therapy occupational therapy Rehabilitation and supportive care --Hypokalemia; replace per protocol and monitor --Hypertensionp; resume home antihypertensives and when necessary medications --History of CVA in the past; supportive care --Elevated D dimers; VQ scan to evaluate for PE VQ scan to rule out PE, --DVT prophylaxis --CODE STATUS full code closely monitor the patient and adjust management as needed prophylaxis. I spent 40 minutes coordinating this admission
--- NOTE | 2018-08-30 17:51 | Vascular Lab Report ---
VL VENOUS DUPLEX LE BILAT CLINICAL INDICATION: Female, 73 years of age. elevated d dimers, evalutae for DVT . COMPARISON: None TECHNIQUE: Multiple cabrera-scale, color-flow and doppler waveform images were saved for the permanent digital medi brandie record. FINDINGS: The deep veins of the lower extremities are normal in appearance throughout. Normal venous flow and compressibility is noted. The visualized veins of the calves are also normal. IMPRESSION: No evidence of deep venous thrombosis of either lower extremity. This document is electronically signed by Paulo Tellez DO., August 30 2018 05:49:21 PM ET
[2018-08-30] MEDS: LOVENOX SUB-Q SCH (21:18)
[2018-08-30] MEDS: NACL 0.9% 1000 ML 1,000 ML IV SCH (21:49)
[2018-08-30] MEDS ORDERED: ASPIRIN PO ONE (23:24)
[2018-08-31 08:47] LABS: Basophils # (Auto) 0.1 K/mm3 (0.0-0.1); Basophils % (Auto) 0.8 % (0.0-1.8); Eosinophils # (Auto) 0.1 K/mm3 (0.0-0.4); Eosinophils % (Auto) 1.3 % (0.0-4.3); Hematocrit 36.2 % (30.3-42.9); Lymphocytes # (Auto) 2.3 K/mm3 (1.2-5.4); Lymphocytes % (Auto) 25.9 % (13.4-35.0); Mean Corpuscular HGB Conc 33 % (30-34); Mean Corpuscular Volume 93 fl (79-97); Monocytes # (Auto) 0.7 K/mm3 (0.0-0.8); Monocytes % (Auto) 7.8 % (0.0-7.3); Platelet Count 294 K/mm3 (140-440); Red Blood Count 3.89 M/mm3 (3.65-5.03); Red Cell Distribution Width 13.8 % (13.2-15.2)
[2018-08-31 09:12] LABS: BUN/Creatinine Ratio 13; Blood Urea Nitrogen 4 mg/dL (7-17); Calcium 8.4 mg/dL (8.4-10.2); Hemolysis Index 61
[2018-08-31] MEDS ORDERED: NON-FORMULARY (Losartan [Cozaar] 100 MG) PO SCH (10:00)
[2018-08-31] MEDS: COZAAR PO SCH (10:26)
[2018-08-31] MEDS ORDERED: PNEUMOVAX 23 IM ONE (12:00)
[2018-08-31] MEDS: FLEXERIL PO PRN ×2 (14:04→21:01)
--- NOTE | 2018-08-31 17:12 | Progress Note ---
Assessment and Plan Assessment and plan: --Muscle cramps and spasms; advised plenty of oral fluids, muscle relaxers and supportive care --Generalized weakness and debility Nutrition supplement, physical therapy, occupational therapy, fall precautions. --Near syncope; secondary to generalized weakness; physical therapy occupational therapy Rehabilitation and supportive care --Hypokalemia; dictated --Hypertension; moderate control antihypertensives and when necessary medications --History of CVA in the past; supportive care --Elevated D dimers; check VQ scan to r/or PE Extremity venous Doppler negative for DVT --DVT prophylaxis; Lovenox --CODE STATUS full code --monitor the patient, adjust management as needed prophylaxis. Out of bed to chair Physical therapy occupational therapy Possible discharge in 1-2 days if stable Home with home health History Interval history: Patient seen and examined medical records reviewed Patient feels better , complains of mild intermittent muscle spasms Alert awake oriented 3, Vital signs reviewed Hospitalist Physical - Constitutional Vitals: Temp Pulse Resp BP Pulse Ox 97.9 F 95 H 28 H 147/68 98 08/30/18 19:40 08/31/18 10:00 08/30/18 19:40 08/31/18 10:26 08/30/18 19:40 General appearance: Present: no acute distress, well-nourished, cachectic - EENT Eyes: Present: PERRL, EOM intact - Neck Neck: Present: supple, normal ROM - Respiratory Respiratory effort: normal Respiratory: bilateral: diminished, negative: rales, rhonchi, wheezing - Cardiovascular Rhythm: regular Heart Sounds: Present: S1 & S2 - Extremities Extremities: no ischemia, No edema - Abdominal General gastrointestinal: soft, non-tender, non-distended, normal bowel sounds - Integumentary Integumentary: Present: clear, warm - Psychiatric Psychiatric: appropriate mood/affect, cooperative - Neurologic Neurologic: CNII-XII intact, moves all extremities Results - Labs CBC & Chem 7: 08/31/18 07:48 08/31/18 07:48 Labs: Laboratory Last Values WBC 8.7 K/mm3 (4.5-11.0) 08/31/18 07:48 RBC 3.89 M/mm3 (3.65-5.03) 08/31/18 07:48 Hgb 12.0 gm/dl (10.1-14.3) 08/31/18 07:48 Hct 36.2 % (30.3-42.9) 08/31/18 07:48 MCV 93 fl (79-97) 08/31/18 07:48 MCH 31 pg (28-32) 08/31/18 07:48 MCHC 33 % (30-34) 08/31/18 07:48 RDW 13.8 % (13.2-15.2) 08/31/18 07:48 Plt Count 294 K/mm3 (140-440) 08/31/18 07:48 Lymph % (Auto) 25.9 % (13.4-35.0) 08/31/18 07:48 [place] % (Auto) 7.8 % (0.0-7.3) H 08/31/18 07:48 Eos % (Auto) 1.3 % (0.0-4.3) 08/31/18 07:48 Baso % (Auto) 0.8 % (0.0-1.8) 08/31/18 07:48 Lymph # 2.3 K/mm3 (1.2-5.4) 08/31/18 07:48 [place] # 0.7 K/mm3 (0.0-0.8) 08/31/18 07:48 Eos # 0.1 K/mm3 (0.0-0.4) 08/31/18 07:48 Baso # 0.1 K/mm3 (0.0-0.1) 08/31/18 07:48 Seg Neutrophils % 64.2 % (40.0-70.0) 08/31/18 07:48 Seg Neutrophils # 5.6 K/mm3 (1.8-7.7) 08/31/18 07:48 PT 13.1 Sec. (12.2-14.9) 08/30/18 10:25 INR 0.94 (0.87-1.13) 08/30/18 10:25 APTT 23.9 Sec. (24.2-36.6) L 08/30/18 10:25 D-Dimer 588.77 ng/mlDDU (0-234) H 08/30/18 10:25 VBG pH 7.474 (7.320-7.420) H 08/30/18 10:25 Sodium 142 mmol/L (137-145) 08/31/18 07:48 Potassium 3.7 mmol/L (3.6-5.0) 08/31/18 07:48 Chloride 103.8 mmol/L (98-107) 08/31/18 07:48 Carbon Dioxide 22 mmol/L (22-30) 08/31/18 07:48 Anion Gap 20 mmol/L 08/31/18 07:48 BUN 4 mg/dL (7-17) L 08/31/18 07:48 Creatinine 0.3 mg/dL (0.7-1.2) L 08/31/18 07:48 Estimated GFR > 60 ml/min 08/31/18 07:48 BUN/Creatinine Ratio 13 % 08/31/18 07:48 Glucose 51 mg/dL (65-100) L 08/31/18 07:48 Lactic Acid 0.90 mmol/L (0.7-2.0) 08/30/18 10:25 Calcium 8.4 mg/dL (8.4-10.2) 08/31/18 07:48 Magnesium 2.00 mg/dL (1.7-2.3) 08/30/18 10:25 Total Bilirubin 0.50 mg/dL (0.1-1.2) 08/30/18 10:25 Direct Bilirubin < 0.2 mg/dL (0-0.2) 08/30/18 10:25 Indirect Bilirubin 0.3 mg/dL 08/30/18 10:25 AST 17 units/L (5-40) 08/30/18 10:25 ALT 15 units/L (7-56) 08/30/18 10:25 Alkaline Phosphatase 81 units/L (35-129) 08/30/18 10:25 Total Creatine Kinase 84 units/L (30-135) 08/30/18 10:25 CK-MB (CK-2) 2.3 ng/mL (0.0-4.0) 08/30/18 10:25 CK-MB (CK-2) Rel Index 2.7 (0-4) 08/30/18 10:25 Troponin T < 0.010 ng/mL (0.00-0.029) 08/30/18 10:25 NT-Pro-B Natriuret Pep 124.4 pg/mL (0-900) 08/30/18 10:25 Total Protein 6.6 g/dL (6.3-8.2) 08/30/18 10:25 Albumin 4.0 g/dL (3.9-5) 08/30/18 10:25 Albumin/Globulin Ratio 1.5 % 08/30/18 10:25 Urine Color Straw (Yellow) 08/30/18 11:32 Urine Turbidity Clear (Clear) 08/30/18 11:32 Urine pH 8.0 (5.0-7.0) H 08/30/18 11:32 Ur Specific [place] 1.003 (1.003-1.030) 08/30/18 11:32 Urine Protein <15 mg/dl mg/dL (Negative) 08/30/18 11:32 Urine Glucose (UA) Neg mg/dL (Negative) 08/30/18 11:32 Urine Ketones Tr mg/dL (Negative) 08/30/18 11:32 Urine Blood Neg (Negative) 08/30/18 11:32 Urine Nitrite Neg (Negative) 08/30/18 11:32 Urine Bilirubin Neg (Negative) 08/30/18 11:32 Urine Urobilinogen < 2.0 mg/dL (<2.0) 08/30/18 11:32 Ur Leukocyte Esterase Neg (Negative) 08/30/18 11:32 Urine WBC (Auto) 1.0 /HPF (0.0-6.0) 08/30/18 11:32 Urine RBC (Auto) 1.0 /HPF (0.0-6.0) 08/30/18 11:32 U Epithel Cells (Auto) 1.0 /HPF (0-13.0) 08/30/18 11:32 Active Medications - Current Medications Current Medications: Generic Name Dose Route Start Last Admin Trade Name Freq PRN Reason Stop Dose Admin Atorvastatin Calcium 40 mg 08/31/18 10:00 08/31/18 10:26 Lipitor PO 40 mg DAILY MICHA Administration Cyclobenzaprine HCl 5 mg 08/31/18 13:39 08/31/18 14:04 Flexeril PO 5 mg Q8H PRN Administration Muscle Spasm Enoxaparin Sodium 40 mg 08/30/18 22:00 08/30/18 21:18 Lovenox SUB-Q 40 mg QDAY@2200 MICHA Administration Ergocalciferol 50,000 unit 09/06/18 10:00 Vitamin D2 PO QWEEK MICHA Sodium Chloride 1,000 mls @ 100 mls/hr 08/30/18 17:00 08/30/18 21:49 Nacl 0.9% 1000 Ml IV 100 mls/hr DIRECT MICHA Administration Lorazepam 1 mg 08/30/18 15:45 08/30/18 15:51 Ativan IV 1 mg Q3H PRN Administration Anxiety Losartan Potassium 100 mg 08/31/18 10:00 08/31/18 10:26 Cozaar PO 100 mg QDAY MICHA Administration
[2018-08-31] MEDS: LOVENOX SUB-Q SCH (21:03)
[2018-09-01] MEDS: NACL 0.9% 1000 ML 1,000 ML IV SCH (05:14)
--- NOTE | 2018-09-01 08:23 | Nuclear Medicine Report ---
LUNG SCAN, VENTILATION AND PERFUSION: History: Elevated D. dimers, evaluate for PE. Technique: 5mci of Tc99m MAA was infused for the perfusion images. 15mci XE 133 gas was inhaled for the ventilatory images. Correlation is made with a chest x-ray dated 08/30/18. Findings: Inhalation of Xenon gas demonstrates a normal distribution of the activity throughout both lungs. The wash out phases show no focal retention of activity. After injection of Technetium 99m macroaggregated albumin gamma camera imaging of the lungs in multiple projections demonstrates normal pulmonary contours with a homogeneous distribution of activity. No focal areas of perfusion deficiency are identified. IMPRESSION: Low probability for pulmonary embolus.
--- NOTE | 2018-09-01 08:55 | XRay Report ---
AP CHEST: HISTORY: Elevated D. dimers, evaluate for PE, NM V/Q scan AP view of the chest demonstrates a normal mediastinal and cardiac contour with clear lungs and normal bony and soft tissue structures. IMPRESSION: Unremarkable AP chest.
--- NOTE | 2018-09-01 09:00 | Progress Note ---
Assessment and Plan Assessment and plan: --Muscle cramps and spasms; advised plenty of oral fluids, muscle relaxers and supportive care --Generalized weakness and debility Nutrition supplement, physical therapy, occupational therapy, fall precautions. --Near syncope; secondary to generalized weakness; physical therapy occupational therapy Rehabilitation and supportive care --Hypokalemia; dictated --Hypertension; moderate control antihypertensives and when necessary medications --History of CVA in the past; supportive care --Elevated D dimers; VQ scan low probability for PE Extremity venous Doppler negative for DVT --DVT prophylaxis; Lovenox --CODE STATUS full code --monitor the patient, adjust management as needed prophylaxis. Out of bed to chair Physical therapy occupational therapy Possible discharge in 1-2 days if stable Home with home health Discussed with [facility] physician Dr. Crain , patient's condition treatment and discharge plan History Interval history: Patient seen and examined medical records reviewed No new events reported by nursing staff The patient complains of some muscle cramps Alert awake oriented 3 Vital signs noted Hospitalist Physical - Constitutional Vitals: Temp Pulse Resp BP Pulse Ox 98.3 F 89 18 167/78 100 09/01/18 03:09 09/01/18 08:12 09/01/18 08:12 09/01/18 03:09 09/01/18 03:09 General appearance: Present: no acute distress, well-nourished, cachectic - EENT Eyes: Present: PERRL, EOM intact - Neck Neck: Present: supple, normal ROM - Respiratory Respiratory effort: normal Respiratory: bilateral: diminished, negative: rales, rhonchi, wheezing - Cardiovascular Rhythm: regular Heart Sounds: Present: S1 & S2 - Extremities Extremities: no ischemia, No edema - Abdominal General gastrointestinal: soft, non-tender, non-distended, normal bowel sounds - Integumentary Integumentary: Present: clear, warm - Psychiatric Psychiatric: appropriate mood/affect, cooperative - Neurologic Neurologic: CNII-XII intact, moves all extremities Results - Labs CBC & Chem 7: 08/31/18 07:48 08/31/18 07:48 Labs: Laboratory Last Values WBC 8.7 K/mm3 (4.5-11.0) 08/31/18 07:48 RBC 3.89 M/mm3 (3.65-5.03) 08/31/18 07:48 Hgb 12.0 gm/dl (10.1-14.3) 08/31/18 07:48 Hct 36.2 % (30.3-42.9) 08/31/18 07:48 MCV 93 fl (79-97) 08/31/18 07:48 MCH 31 pg (28-32) 08/31/18 07:48 MCHC 33 % (30-34) 08/31/18 07:48 RDW 13.8 % (13.2-15.2) 08/31/18 07:48 Plt Count 294 K/mm3 (140-440) 08/31/18 07:48 Lymph % (Auto) 25.9 % (13.4-35.0) 08/31/18 07:48 [place] % (Auto) 7.8 % (0.0-7.3) H 08/31/18 07:48 Eos % (Auto) 1.3 % (0.0-4.3) 08/31/18 07:48 Baso % (Auto) 0.8 % (0.0-1.8) 08/31/18 07:48 Lymph # 2.3 K/mm3 (1.2-5.4) 08/31/18 07:48 [place] # 0.7 K/mm3 (0.0-0.8) 08/31/18 07:48 Eos # 0.1 K/mm3 (0.0-0.4) 08/31/18 07:48 Baso # 0.1 K/mm3 (0.0-0.1) 08/31/18 07:48 Seg Neutrophils % 64.2 % (40.0-70.0) 08/31/18 07:48 Seg Neutrophils # 5.6 K/mm3 (1.8-7.7) 08/31/18 07:48 PT 13.1 Sec. (12.2-14.9) 08/30/18 10:25 INR 0.94 (0.87-1.13) 08/30/18 10:25 APTT 23.9 Sec. (24.2-36.6) L 08/30/18 10:25 D-Dimer 588.77 ng/mlDDU (0-234) H 08/30/18 10:25 VBG pH 7.474 (7.320-7.420) H 08/30/18 10:25 Sodium 142 mmol/L (137-145) 08/31/18 07:48 Potassium 3.7 mmol/L (3.6-5.0) 08/31/18 07:48 Chloride 103.8 mmol/L (98-107) 08/31/18 07:48 Carbon Dioxide 22 mmol/L (22-30) 08/31/18 07:48 Anion Gap 20 mmol/L 08/31/18 07:48 BUN 4 mg/dL (7-17) L 08/31/18 07:48 Creatinine 0.3 mg/dL (0.7-1.2) L 08/31/18 07:48 Estimated GFR > 60 ml/min 08/31/18 07:48 BUN/Creatinine Ratio 13 % 08/31/18 07:48 Glucose 51 mg/dL (65-100) L 08/31/18 07:48 Lactic Acid 0.90 mmol/L (0.7-2.0) 08/30/18 10:25 Calcium 8.4 mg/dL (8.4-10.2) 08/31/18 07:48 Magnesium 2.00 mg/dL (1.7-2.3) 08/30/18 10:25 Total Bilirubin 0.50 mg/dL (0.1-1.2) 08/30/18 10:25 Direct Bilirubin < 0.2 mg/dL (0-0.2) 08/30/18 10:25 Indirect Bilirubin 0.3 mg/dL 08/30/18 10:25 AST 17 units/L (5-40) 08/30/18 10:25 ALT 15 units/L (7-56) 08/30/18 10:25 Alkaline Phosphatase 81 units/L (35-129) 08/30/18 10:25 Total Creatine Kinase 84 units/L (30-135) 08/30/18 10:25 CK-MB (CK-2) 2.3 ng/mL (0.0-4.0) 08/30/18 10:25 CK-MB (CK-2) Rel Index 2.7 (0-4) 08/30/18 10:25 Troponin T < 0.010 ng/mL (0.00-0.029) 08/30/18 10:25 NT-Pro-B Natriuret Pep 124.4 pg/mL (0-900) 08/30/18 10:25 Total Protein 6.6 g/dL (6.3-8.2) 08/30/18 10:25 Albumin 4.0 g/dL (3.9-5) 08/30/18 10:25 Albumin/Globulin Ratio 1.5 % 08/30/18 10:25 Urine Color Straw (Yellow) 08/30/18 11:32 Urine Turbidity Clear (Clear) 08/30/18 11:32 Urine pH 8.0 (5.0-7.0) H 08/30/18 11:32 Ur Specific [place] 1.003 (1.003-1.030) 08/30/18 11:32 Urine Protein <15 mg/dl mg/dL (Negative) 08/30/18 11:32 Urine Glucose (UA) Neg mg/dL (Negative) 08/30/18 11:32 Urine Ketones Tr mg/dL (Negative) 08/30/18 11:32 Urine Blood Neg (Negative) 08/30/18 11:32 Urine Nitrite Neg (Negative) 08/30/18 11:32 Urine Bilirubin Neg (Negative) 08/30/18 11:32 Urine Urobilinogen < 2.0 mg/dL (<2.0) 08/30/18 11:32 Ur Leukocyte Esterase Neg (Negative) 08/30/18 11:32 Urine WBC (Auto) 1.0 /HPF (0.0-6.0) 08/30/18 11:32 Urine RBC (Auto) 1.0 /HPF (0.0-6.0) 08/30/18 11:32 U Epithel Cells (Auto) 1.0 /HPF (0-13.0) 08/30/18 11:32 Active Medications - Current Medications Current Medications: Generic Name Dose Route Start Last Admin Trade Name Freq PRN Reason Stop Dose Admin Atorvastatin Calcium 40 mg 08/31/18 10:00 08/31/18 10:26 Lipitor PO 40 mg DAILY MICHA Administration Cyclobenzaprine HCl 5 mg 08/31/18 13:39 08/31/18 21:01 Flexeril PO 5 mg Q8H PRN Administration Muscle Spasm Enoxaparin Sodium 40 mg 08/30/18 22:00 08/31/18 21:03 Lovenox SUB-Q 40 mg QDAY@2200 MICHA Administration Ergocalciferol 50,000 unit 09/06/18 10:00 Vitamin D2 PO QWEEK MICHA Sodium Chloride 1,000 mls @ 100 mls/hr 08/30/18 17:00 09/01/18 05:14 Nacl 0.9% 1000 Ml IV 100 mls/hr DIRECT MICHA Administration Lorazepam 1 mg 08/30/18 15:45 08/30/18 15:51 Ativan IV 1 mg Q3H PRN Administration Anxiety Losartan Potassium 100 mg 08/31/18 10:00 08/31/18 10:26 Cozaar PO 100 mg QDAY MICHA Administration
[2018-09-01] MEDS: FLEXERIL PO PRN (10:58)
[2018-09-01] MEDS: COZAAR PO SCH (10:59)
[2018-09-01] MEDS: ATIVAN IV PRN (13:13)
[2018-09-01] MEDS: LOVENOX SUB-Q SCH (23:04)
[2018-09-02] MEDS: NACL 0.9% 1000 ML 1,000 ML IV SCH ×2 (06:22→18:50)
--- NOTE | 2018-09-02 09:31 | Progress Note ---
Assessment and Plan Assessment and plan: --Muscle cramps and spasms; advised plenty of oral fluids, muscle relaxers and supportive care --Generalized weakness and debility Nutrition supplement, physical therapy, occupational therapy, fall precautions. --Near syncope; secondary to generalized weakness; physical therapy occupational therapy Rehabilitation and supportive care --Hypokalemia; dictated --Hypertension; moderate control antihypertensives and when necessary medications --History of CVA in the past; supportive care --Elevated D dimers; VQ scan low probability for PE Extremity venous Doppler negative for DVT --DVT prophylaxis; Lovenox --CODE STATUS full code --monitor the patient, adjust management as needed prophylaxis. Out of bed to chair Physical therapy occupational therapy Discussed with [place] physician Dr. Crain , patient's condition treatment and discharge plan Patient clinically stable for discharge today History Interval history: Patient seen and examined medical records reviewed No new events reported by the nursing Complaints of generalized weakness Unable to do physical therapy Vital signs noted Hospitalist Physical - Constitutional Vitals: Temp Pulse Resp BP Pulse Ox 98.4 F 87 14 128/66 100 09/02/18 07:53 09/02/18 07:53 09/02/18 07:53 09/02/18 07:53 09/02/18 07:53 General appearance: Present: no acute distress, well-nourished, cachectic - EENT Eyes: Present: PERRL, EOM intact - Neck Neck: Present: supple, normal ROM - Respiratory Respiratory effort: normal Respiratory: bilateral: diminished, negative: rales, rhonchi, wheezing - Cardiovascular Rhythm: regular Heart Sounds: Present: S1 & S2 - Extremities Extremities: no ischemia, No edema - Abdominal General gastrointestinal: soft, non-tender, non-distended, normal bowel sounds - Integumentary Integumentary: Present: clear, warm - Psychiatric Psychiatric: appropriate mood/affect, other (generalized weakness) - Neurologic Neurologic: moves all extremities Results - Labs CBC & Chem 7: 08/31/18 07:48 08/31/18 07:48 Labs: Laboratory Last Values WBC 8.7 K/mm3 (4.5-11.0) 08/31/18 07:48 RBC 3.89 M/mm3 (3.65-5.03) 08/31/18 07:48 Hgb 12.0 gm/dl (10.1-14.3) 08/31/18 07:48 Hct 36.2 % (30.3-42.9) 08/31/18 07:48 MCV 93 fl (79-97) 08/31/18 07:48 MCH 31 pg (28-32) 08/31/18 07:48 MCHC 33 % (30-34) 08/31/18 07:48 RDW 13.8 % (13.2-15.2) 08/31/18 07:48 Plt Count 294 K/mm3 (140-440) 08/31/18 07:48 Lymph % (Auto) 25.9 % (13.4-35.0) 08/31/18 07:48 [place] % (Auto) 7.8 % (0.0-7.3) H 08/31/18 07:48 Eos % (Auto) 1.3 % (0.0-4.3) 08/31/18 07:48 Baso % (Auto) 0.8 % (0.0-1.8) 08/31/18 07:48 Lymph # 2.3 K/mm3 (1.2-5.4) 08/31/18 07:48 [place] # 0.7 K/mm3 (0.0-0.8) 08/31/18 07:48 Eos # 0.1 K/mm3 (0.0-0.4) 08/31/18 07:48 Baso # 0.1 K/mm3 (0.0-0.1) 08/31/18 07:48 Seg Neutrophils % 64.2 % (40.0-70.0) 08/31/18 07:48 Seg Neutrophils # 5.6 K/mm3 (1.8-7.7) 08/31/18 07:48 PT 13.1 Sec. (12.2-14.9) 08/30/18 10:25 INR 0.94 (0.87-1.13) 08/30/18 10:25 APTT 23.9 Sec. (24.2-36.6) L 08/30/18 10:25 D-Dimer 588.77 ng/mlDDU (0-234) H 08/30/18 10:25 VBG pH 7.474 (7.320-7.420) H 08/30/18 10:25 Sodium 142 mmol/L (137-145) 08/31/18 07:48 Potassium 3.7 mmol/L (3.6-5.0) 08/31/18 07:48 Chloride 103.8 mmol/L (98-107) 08/31/18 07:48 Carbon Dioxide 22 mmol/L (22-30) 08/31/18 07:48 Anion Gap 20 mmol/L 08/31/18 07:48 BUN 4 mg/dL (7-17) L 08/31/18 07:48 Creatinine 0.3 mg/dL (0.7-1.2) L 08/31/18 07:48 Estimated GFR > 60 ml/min 08/31/18 07:48 BUN/Creatinine Ratio 13 % 08/31/18 07:48 Glucose 51 mg/dL (65-100) L 08/31/18 07:48 Lactic Acid 0.90 mmol/L (0.7-2.0) 08/30/18 10:25 Calcium 8.4 mg/dL (8.4-10.2) 08/31/18 07:48 Magnesium 2.00 mg/dL (1.7-2.3) 08/30/18 10:25 Total Bilirubin 0.50 mg/dL (0.1-1.2) 08/30/18 10:25 Direct Bilirubin < 0.2 mg/dL (0-0.2) 08/30/18 10:25 Indirect Bilirubin 0.3 mg/dL 08/30/18 10:25 AST 17 units/L (5-40) 08/30/18 10:25 ALT 15 units/L (7-56) 08/30/18 10:25 Alkaline Phosphatase 81 units/L (35-129) 08/30/18 10:25 Total Creatine Kinase 84 units/L (30-135) 08/30/18 10:25 CK-MB (CK-2) 2.3 ng/mL (0.0-4.0) 08/30/18 10:25 CK-MB (CK-2) Rel Index 2.7 (0-4) 08/30/18 10:25 Troponin T < 0.010 ng/mL (0.00-0.029) 08/30/18 10:25 NT-Pro-B Natriuret Pep 124.4 pg/mL (0-900) 08/30/18 10:25 Total Protein 6.6 g/dL (6.3-8.2) 08/30/18 10:25 Albumin 4.0 g/dL (3.9-5) 08/30/18 10:25 Albumin/Globulin Ratio 1.5 % 08/30/18 10:25 Urine Color Straw (Yellow) 08/30/18 11:32 Urine Turbidity Clear (Clear) 08/30/18 11:32 Urine pH 8.0 (5.0-7.0) H 08/30/18 11:32 Ur Specific [place] 1.003 (1.003-1.030) 08/30/18 11:32 Urine Protein <15 mg/dl mg/dL (Negative) 08/30/18 11:32 Urine Glucose (UA) Neg mg/dL (Negative) 08/30/18 11:32 Urine Ketones Tr mg/dL (Negative) 08/30/18 11:32 Urine Blood Neg (Negative) 08/30/18 11:32 Urine Nitrite Neg (Negative) 08/30/18 11:32 Urine Bilirubin Neg (Negative) 08/30/18 11:32 Urine Urobilinogen < 2.0 mg/dL (<2.0) 08/30/18 11:32 Ur Leukocyte Esterase Neg (Negative) 08/30/18 11:32 Urine WBC (Auto) 1.0 /HPF (0.0-6.0) 08/30/18 11:32 Urine RBC (Auto) 1.0 /HPF (0.0-6.0) 08/30/18 11:32 U Epithel Cells (Auto) 1.0 /HPF (0-13.0) 08/30/18 11:32 Active Medications - Current Medications Current Medications: Generic Name Dose Route Start Last Admin Trade Name Freq PRN Reason Stop Dose Admin Atorvastatin Calcium 40 mg 08/31/18 10:00 09/01/18 10:57 Lipitor PO 40 mg DAILY MICHA Administration Cyclobenzaprine HCl 5 mg 08/31/18 13:39 09/01/18 10:58 Flexeril PO 5 mg Q8H PRN Administration Muscle Spasm Enoxaparin Sodium 40 mg 08/30/18 22:00 09/01/18 23:04 Lovenox SUB-Q 40 mg QDAY@2200 MICHA Administration Ergocalciferol 50,000 unit 09/06/18 10:00 Vitamin D2 PO QWEEK MICHA Sodium Chloride 1,000 mls @ 100 mls/hr 08/30/18 17:00 09/02/18 06:22 Nacl 0.9% 1000 Ml IV 100 mls/hr DIRECT MICHA Administration Lorazepam 1 mg 08/30/18 15:45 09/01/18 13:13 Ativan IV 1 mg Q3H PRN Administration Anxiety Losartan Potassium 100 mg 08/31/18 10:00 09/01/18 10:59 Cozaar PO 100 mg QDAY MICHA Administration Nutrition/Malnutrition Assess - Dietary Evaluation Nutrition/Malnutrition Findings: Nutrition Notes Start: 09/01/18 16:49 Freq: Status: Active Protocol: Document 09/01/18 16:49 OL (Rec: 09/01/18 16:52 OL [id number]) Nutrition Notes 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 Pt. sleeping soundly at time of visit. Intakes today are poor, 25-50%. RD will continue to monitor and follow . Burn Absent Trauma Absent #1 Nutrition Diagnosis Inadequate oral intake Etiology decreased appetite As Evidenced by Signs and Symptoms 25-50% of meals consumed today , low BMI for age. Is patient on ventilator? No Is Patient Ambulatory and/or Out of Bed No REE-([facility]-confined to bed) 1046.688 Kcal/Kg value to use for calculation 30 Approximate Energy Requirements Using 1402 kcal/Kg Calculation Used for Recommendations Kcal/kg Additional Notes protein (1.2-1.5g/kg): 56-70g fluid: 1mL/kcal or per MD Nutrition Intervention Change Diet Order: Continue mechanical soft as tolerated Add Supplement/Snack (indicate name/kcal Ensure Enlive daily /protein ) Provides kCal: 350 Provides Protein (gm) 20 Goal #1 Diet to meet 75-100% of nutrient needs. Follow-Up By: 09/03/18 Additional Comments f/u: intakes, ONS tolerance
[2018-09-02] MEDS: COZAAR PO SCH (09:35)
[2018-09-02] MEDS: FLEXERIL PO PRN ×2 (09:43→22:28)
[2018-09-02] MEDS: LOVENOX SUB-Q SCH (22:21)
[2018-09-03] MEDS: NACL 0.9% 1000 ML 1,000 ML IV SCH (04:36)
[2018-09-03] MEDS: COZAAR PO SCH (09:50)
[2018-09-03] MEDS: FLEXERIL PO PRN ×2 (09:51→18:32)
--- NOTE | 2018-09-03 19:44 | Progress Note ---
Assessment and Plan Assessment and plan: --Generalized weakness and debility Nutrition supplement, physical therapy, occupational therapy, fall precautions. --Muscle cramps and spasms; advised plenty of oral fluids, muscle relaxers and supportive care --Near syncope; secondary to generalized weakness; physical therapy occupational therapy Rehabilitation and supportive care --Hypokalemia; dictated --Hypertension; moderate control antihypertensives and when necessary medications --History of CVA in the past; supportive care --Elevated D dimers; VQ scan low probability for PE Extremity venous Doppler negative for DVT --DVT prophylaxis; Lovenox --CODE STATUS full code --monitor the patient, adjust management as needed prophylaxis. Out of bed to chair Physical therapy recommend rehabilitation Discussed with [place] physician Dr. York patient's condition treatment and discharge plan Patient is stable for discharge Pending rehabilitation placement History Interval history: Patient seen and examined medical records reviewed No new events reported by the nursing staff Patient complains of generalized weakness Medically stable for discharge Case management sitting up acute rehabilitation Vital signs noted Hospitalist Physical - Constitutional Vitals: Temp Pulse Resp BP Pulse Ox 97.7 F 102 H 18 153/89 98 09/03/18 17:09 09/03/18 18:57 09/03/18 17:09 09/03/18 17:09 09/03/18 09:49 General appearance: Present: no acute distress, well-nourished, cachectic - EENT Eyes: Present: PERRL, EOM intact - Neck Neck: Present: supple, normal ROM - Respiratory Respiratory effort: normal Respiratory: bilateral: diminished, negative: rales, rhonchi, wheezing - Cardiovascular Rhythm: regular Heart Sounds: Present: S1 & S2 - Extremities Extremities: no ischemia, No edema - Abdominal General gastrointestinal: soft, non-tender, non-distended, normal bowel sounds - Integumentary Integumentary: Present: clear, warm - Psychiatric Psychiatric: appropriate mood/affect, cooperative - Neurologic Neurologic: CNII-XII intact, moves all extremities Results - Labs CBC & Chem 7: 08/31/18 07:48 08/31/18 07:48 Labs: Laboratory Last Values WBC 8.7 K/mm3 (4.5-11.0) 08/31/18 07:48 RBC 3.89 M/mm3 (3.65-5.03) 08/31/18 07:48 Hgb 12.0 gm/dl (10.1-14.3) 08/31/18 07:48 Hct 36.2 % (30.3-42.9) 08/31/18 07:48 MCV 93 fl (79-97) 08/31/18 07:48 MCH 31 pg (28-32) 08/31/18 07:48 MCHC 33 % (30-34) 08/31/18 07:48 RDW 13.8 % (13.2-15.2) 08/31/18 07:48 Plt Count 294 K/mm3 (140-440) 08/31/18 07:48 Lymph % (Auto) 25.9 % (13.4-35.0) 08/31/18 07:48 [place] % (Auto) 7.8 % (0.0-7.3) H 08/31/18 07:48 Eos % (Auto) 1.3 % (0.0-4.3) 08/31/18 07:48 Baso % (Auto) 0.8 % (0.0-1.8) 08/31/18 07:48 Lymph # 2.3 K/mm3 (1.2-5.4) 08/31/18 07:48 [place] # 0.7 K/mm3 (0.0-0.8) 08/31/18 07:48 Eos # 0.1 K/mm3 (0.0-0.4) 08/31/18 07:48 Baso # 0.1 K/mm3 (0.0-0.1) 08/31/18 07:48 Seg Neutrophils % 64.2 % (40.0-70.0) 08/31/18 07:48 Seg Neutrophils # 5.6 K/mm3 (1.8-7.7) 08/31/18 07:48 PT 13.1 Sec. (12.2-14.9) 08/30/18 10:25 INR 0.94 (0.87-1.13) 08/30/18 10:25 APTT 23.9 Sec. (24.2-36.6) L 08/30/18 10:25 D-Dimer 588.77 ng/mlDDU (0-234) H 08/30/18 10:25 VBG pH 7.474 (7.320-7.420) H 08/30/18 10:25 Sodium 142 mmol/L (137-145) 08/31/18 07:48 Potassium 3.7 mmol/L (3.6-5.0) 08/31/18 07:48 Chloride 103.8 mmol/L (98-107) 08/31/18 07:48 Carbon Dioxide 22 mmol/L (22-30) 08/31/18 07:48 Anion Gap 20 mmol/L 08/31/18 07:48 BUN 4 mg/dL (7-17) L 08/31/18 07:48 Creatinine 0.3 mg/dL (0.7-1.2) L 08/31/18 07:48 Estimated GFR > 60 ml/min 08/31/18 07:48 BUN/Creatinine Ratio 13 % 08/31/18 07:48 Glucose 51 mg/dL (65-100) L 08/31/18 07:48 Lactic Acid 0.90 mmol/L (0.7-2.0) 08/30/18 10:25 Calcium 8.4 mg/dL (8.4-10.2) 08/31/18 07:48 Magnesium 2.00 mg/dL (1.7-2.3) 08/30/18 10:25 Total Bilirubin 0.50 mg/dL (0.1-1.2) 08/30/18 10:25 Direct Bilirubin < 0.2 mg/dL (0-0.2) 08/30/18 10:25 Indirect Bilirubin 0.3 mg/dL 08/30/18 10:25 AST 17 units/L (5-40) 08/30/18 10:25 ALT 15 units/L (7-56) 08/30/18 10:25 Alkaline Phosphatase 81 units/L (35-129) 08/30/18 10:25 Total Creatine Kinase 84 units/L (30-135) 08/30/18 10:25 CK-MB (CK-2) 2.3 ng/mL (0.0-4.0) 08/30/18 10:25 CK-MB (CK-2) Rel Index 2.7 (0-4) 08/30/18 10:25 Troponin T < 0.010 ng/mL (0.00-0.029) 08/30/18 10:25 NT-Pro-B Natriuret Pep 124.4 pg/mL (0-900) 08/30/18 10:25 Total Protein 6.6 g/dL (6.3-8.2) 08/30/18 10:25 Albumin 4.0 g/dL (3.9-5) 08/30/18 10:25 Albumin/Globulin Ratio 1.5 % 08/30/18 10:25 Urine Color Straw (Yellow) 08/30/18 11:32 Urine Turbidity Clear (Clear) 08/30/18 11:32 Urine pH 8.0 (5.0-7.0) H 08/30/18 11:32 Ur Specific [place] 1.003 (1.003-1.030) 08/30/18 11:32 Urine Protein <15 mg/dl mg/dL (Negative) 08/30/18 11:32 Urine Glucose (UA) Neg mg/dL (Negative) 08/30/18 11:32 Urine Ketones Tr mg/dL (Negative) 08/30/18 11:32 Urine Blood Neg (Negative) 08/30/18 11:32 Urine Nitrite Neg (Negative) 08/30/18 11:32 Urine Bilirubin Neg (Negative) 08/30/18 11:32 Urine Urobilinogen < 2.0 mg/dL (<2.0) 08/30/18 11:32 Ur Leukocyte Esterase Neg (Negative) 08/30/18 11:32 Urine WBC (Auto) 1.0 /HPF (0.0-6.0) 08/30/18 11:32 Urine RBC (Auto) 1.0 /HPF (0.0-6.0) 08/30/18 11:32 U Epithel Cells (Auto) 1.0 /HPF (0-13.0) 08/30/18 11:32 Active Medications - Current Medications Current Medications: Generic Name Dose Route Start Last Admin Trade Name Freq PRN Reason Stop Dose Admin Atorvastatin Calcium 40 mg 08/31/18 10:00 09/03/18 09:51 Lipitor PO 40 mg DAILY MICHA Administration Cyclobenzaprine HCl 5 mg 08/31/18 13:39 09/03/18 18:32 Flexeril PO 5 mg Q8H PRN Administration Muscle Spasm Enoxaparin Sodium 40 mg 08/30/18 22:00 09/02/18 22:21 Lovenox SUB-Q 40 mg QDAY@2200 MICHA Administration Ergocalciferol 50,000 unit 09/06/18 10:00 Vitamin D2 PO QWEEK MICHA Sodium Chloride 1,000 mls @ 100 mls/hr 08/30/18 17:00 09/03/18 04:36 Nacl 0.9% 1000 Ml IV 100 mls/hr DIRECT MICHA Administration Lorazepam 1 mg 08/30/18 15:45 09/01/18 13:13 Ativan IV 1 mg Q3H PRN Administration Anxiety Losartan Potassium 100 mg 08/31/18 10:00 09/03/18 09:50 Cozaar PO 100 mg QDAY MICHA Administration Nutrition/Malnutrition Assess - Dietary Evaluation Nutrition/Malnutrition Findings: Nutrition Notes Start: 09/01/18 16:4 9 Freq: Status: Active Protocol: Document 09/03/18 12:08 EB (Rec: 09/03/18 12:14 EB [id number]) Co-Sign 09/03/18 12:08 LP Nutrition Notes Initial or Follow up Reassessment Current Diagnosis Hypertension Other Pertinent Diagnosis dyslipidemia Current Diet mechanical soft Labs/Tests Reviewed Pertinent Medications Reviewed Height 4 ft 10 in Weight 46.5 kg [place] Body Weight (kg) 40.90 BMI 21.4 Subjective/Other Information F/U for intakes. Pt finished breakfast at time of visit and consumed about 50%. Pt reports 75% consumption of meals yesterday, and drinks the ONS that is delviered. No reports of recent wt loss, trouble chewing, or swallowing difficulty. Pt reports good appetite. Percent of energy/protein needs met: 95%/100% Burn Absent Trauma Absent #1 Nutrition Diagnosis Inadequate oral intake As Evidenced by Signs and Symptoms pt meeting 95% and 100% of brandie and pro needs, respectively Diagnosis Progress(for reassessment Improved documentation) Is patient on ventilator? No Is Patient Ambulatory and/or Out of Bed No REE-([facility]confined to bed) 1044.060 Kcal/Kg value to use for calculation 30 Approximate Energy Requirements Using 1395 kcal/Kg Calculation Used for Recommendations Kcal/kg Additional Notes protein (1.2-1.5g/kg): 56-70g fluid: 1mL/kcal or per MD Nutrition Intervention Change Diet Order: Continue mechanical soft as tolerated Add Supplement/Snack (indicate name/kcal Ensure Enlive daily /protein ) Provides kCal: 350 Provides Protein (gm) 20 Goal #1 Continue to meet at least 75% brandie and pro needs via PO and ONS intake Follow-Up By: 09/10/18 Additional Comments f/u: intakes, ONS tolerance
[2018-09-03] MEDS: LOVENOX SUB-Q SCH (21:57)
[2018-09-04 08:28] VITALS: BP 158/88
[2018-09-04] MEDS: COZAAR PO SCH (10:16)
[2018-09-04] MEDS: FLEXERIL PO PRN (10:20)
--- NOTE | 2018-09-04 15:19 | Discharge Summary ---
Providers - Providers Date of Admission: 08/30/18 15:15 Date of discharge: 09/04/18 Attending physician: AMADA SALVADOR 08/30/18 12:21 Consult to Case Management [CONS] Urgent Services Needed at Discharge: Home Health Services Notified:: yes 09/01/18 08:58 Physical Therapy Evaluation and Treat [CONS] Routine Comment: Reason For Exam: gen debility /weakness 09/01/18 12:06 Occupational Therapy Evaluate and Treat [CONS] Routine Comment: Reason For Exam: Debility Primary care physician: ORIANA MOREL Hospitalization Reason for admission: generalized weakness, near syncope Condition: Stable Pertinent studies: CT head without contrast; no acute CVA or bleed or mass Lower extremity venous Doppler; no evidence of DVT VQ scan; low probability for PE Chest x-ray; no acute abnormality noted Hospital course: 73-year-old female patient with significant past medical history of hypertension dyslipidemia, was admitted to emergency room with generalized weakness and near syncope Patient was evaluation in the ED CT scan of the head was negative for acute abnormality noted to have mild hypokalemia Symptomatically managed, received physical therapy occupational therapy, had muscle cramps managed appropriately Electrolyte abnormalities was corrected, received physical therapy occupational therapy, case management set up [facility] facility placement The patient is comfortable in no new complaints vital signs stable physical examination is unremarkable Discharge and transfer to [facility] facility today Discharge diagnosis; --Generalized weakness and debility Nutrition supplement, physical therapy, occupational therapy, fall precautions. --Muscle cramps and spasms; advised plenty of oral fluids, muscle relaxers and supportive care --Near syncope; secondary to generalized weakness; physical therapy occupational therapy Rehabilitation and supportive care --Hypokalemia; dictated --Hypertension; moderate control antihypertensives and when necessary medications --History of CVA in the past; supportive care --Elevated D dimers; VQ scan low probability for PE Extremity venous Doppler negative for DVT Disposition: DC/[place]-03 [facility] C[facility] Time spent for discharge: 32 min Core Measure Documentation - Palliative Care Palliative Care/ Comfort Measures: Not Applicable - Core Measures Any of the following diagnoses?: none Exam - Constitutional Vitals: Temp Pulse Resp BP Pulse Ox 98.0 F 105 H 14 158/88 99 09/04/18 07:57 09/04/18 10:16 09/04/18 07:57 09/04/18 10:16 09/04/18 07:57 General appearance: Present: no acute distress, well-nourished - EENT Eyes: Present: PERRL, EOM intact - Neck Neck: Present: supple, normal ROM - Respiratory Respiratory effort: normal Respiratory: bilateral: diminished, rales, rhonchi - Cardiovascular Rhythm: regular Heart Sounds: Present: S1 & S2 - Extremities Extremities: no ischemia, No edema - Abdominal General gastrointestinal: Present: soft, non-tender, non-distended, normal bowel sounds - Integumentary Integumentary: Present: clear, warm - Musculoskeletal Musculoskeletal: strength equal bilaterally, generalized weakness - Psychiatric Psychiatric: appropriate mood/affect, cooperative - Neurologic Neurologic: CNII-XII intact, moves all extremities Plan Activity: advance as tolerated, fall precautions Diet: regular Special Instructions: physical therapy, occupational therapy Additional Instructions: Fall precautions Follow up with: ORIANA MOREL MD [Primary Care Provider] - 3-5 Days
[2018-09-04] MEDS ORDERED: TYLENOL PO ONE (16:12)
[2018-09-06] MEDS ORDERED: VITAMIN D2 PO SCH (10:00)
== END 2018-09-04 17:00 | DRG 312 ==
LOC: ED 09:18 → 2B-ACE 15:15
PROVIDERS: ADMIT Internal Medicine; ATTEND Internal Medicine
PROC: 3E0234Z Introduction of Serum, Toxoid and Vaccine into Muscle, Percutaneous Approach (ICD-10-PCS; principal; 2018-08-31)
DX: R55 Syncope and collapse (principal); E87.6 Hypokalemia; R79.89 Other specified abnormal findings of blood chemistry; R53.1 Weakness; E86.9 Volume depletion, unspecified; I10 Essential (primary) hypertension; E11.9 Type 2 diabetes mellitus without complications; Z82.49 Family history of ischemic heart disease and other diseases of the circulatory system; Z86.73 Personal history of transient ischemic attack (TIA), and cerebral infarction without residual deficits; Z23 Encounter for immunization; Z79.84 Long term (current) use of oral hypoglycemic drugs
CPT/HCPCS: 36415; 70450; 71045; 78582; 80048; 80076; 81001; 82140; 82550; 82553; 82805; 83735; 83880; 84484; 85025; 85379; 85610; 85730; 87040; 87086; 87116; 90732; 93005; 93010; 93970; 96360; 96372; G0378; A9270-GY; A9540; A9558; J1650; J2060; J7030; J7040

== ENCOUNTER 2019-07-03 14:36 | Emergency (ER) | payer MEDICARE ==
--- NOTE | 2019-07-03 16:05 | Event Note ---
ED Screening Note Date of service: 07/03/19 Time: 16:02 ED Screening Note: 74 y/o female comes in for Fall on Saturday night. Having pain in her face, neck and all over. Was sent here by her PCP. This initial assessment/diagnostic orders/clinical plan/treatment(s) is/are subject to change based on patients health status, clinical progression and re- assessment by fellow clinical providers in the ED. Further treatment and workup at subsequent clinical providers discretion. Patient/guardian urged not to elope from the ED as their condition may be serious if not clinically assessed and managed. Initial orders include:
--- NOTE | 2019-07-03 19:11 | Cat Scan Report ---
CT BRAIN: 07/03/2019 INDICATION / CLINICAL INFORMATION: Trauma. COMPARISON: 08/30/2018 FINDINGS: BRAIN/INTRACRANIAL STRUCTURES: Unenhanced CT images of the brain were obtained and compared to the pr ior exam from 08/30/2018. There is been no change. There is no evidence of acute abnormality. Ventricles and sulci are prominent in size, consistent wit h diffuse cerebral atrophy. There is no evidence of hemorrhage or mass. There are no abnormal extra-axial fluid collections. EXTRACRANIAL STRUCTURES: Unremarkable. IMPRESSION: No acute abnormality. All CT scans at this location are performed using dose reduction to ALARA by means of automated expos ure control. Signer Name: Juan Wilcox MD Signed: 07/03/2019 7:07 PM Workstation Name: [id number]
--- NOTE | 2019-07-03 19:14 | Cat Scan Report ---
CT CERVICAL SPINE: 07/03/2019 INDICATION / CLINICAL INFORMATION: neck pain s/p fall. COMPARISON: 07/30/2018 FINDINGS: CT images of the cervical spine were obtained. Images are evaluated in the axial, coronal, and sagitt al planes. Comparison is made to the previous exam from 07/30/2018. Again seen is the severe kyphoscoliosis of the cervical and thoracic spine. There is no evidence of acute abnormality. Degenerative disc and facet changes are present throughout the cervical spine. Degenerative anterolisthesis is present at the C3-4 level. Degenerative disc space narrowing is present at C4-5, C5-6, and C6-7. The bones are diffusely osteopenic. CRANIOCERVICAL JUNCTION: Unremarkable. PARASPINAL STRUCTURES: Unremarkable IMPRESSION: No acute abnormality. No change when compared to the prior exam. All CT scans at this location are performed using dose reduction to ALARA by means of automated expos ure control. Signer Name: Juan Wilcox MD Signed: 07/03/2019 7:10 PM Workstation Name: [id number]
--- NOTE | 2019-07-03 19:16 | Cat Scan Report ---
CT THORACIC SPINE: 30 06/22/2019 INDICATION / CLINICAL INFORMATION: neck pain s/p fall. COMPARISON: None available. FINDINGS: CT images of the thoracic spine were obtained. Images are evaluated in the axial, coronal, and sagitt al planes. Patient has a severe left convex scoliosis of the thoracolumbar spine. The bones are diffusely osteopenic. There is no CT evidence of acute traumatic injury. Vertebral body heights are well preserved. PARASPINAL STRUCTURES: Unremarkable IMPRESSION: No acute abnormality. Scoliosis. Osteopenia. All CT scans at this location are performed using dose reduction to ALARA by means of automated expos ure control. Signer Name: Juan Wilcox MD Signed: 07/03/2019 7:12 PM Workstation Name: [id number]
--- NOTE | 2019-07-03 19:18 | Cat Scan Report ---
CT LUMBAR SPINE: 07/03/2019 INDICATION / CLINICAL INFORMATION: neck pain s/p fall. Trauma COMPARISON: None available. FINDINGS: CT images of the lumbar spine were obtained. Images are evaluated in the axial, coronal, and sagittal planes. There is no evidence of acute abnormality. Patient has a pronounced scoliosis of the thoracolumbar spine. The bones are diffusely and prominently osteopenic. There is no evidence of compression deformity. Degenerative facet changes are prominent at all levels in the lumbar spine. PARASPINAL STRUCTURES: Unremarkable. IMPRESSION: No acute abnormality. Scoliosis. Osteopenia. All CT scans at this location are performed using dose reduction to ALARA by means of automated expos ure control. Signer Name: Juan Wilcox MD Signed: 07/03/2019 7:14 PM Workstation Name: [id number]
--- NOTE | 2019-07-03 20:21 | Emergency Department Report ---
ED Fall HPI - General Chief Complaint: Fall Stated Complaint: FALL Time Seen by Provider: 07/03/19 16:01 Source: patient Mode of arrival: Wheelchair - History of Present Illness Initial Comments: Patient is a 74-year-old female presents emergency room with complaints of a fall that occurred 4 days ago. States that she called her primary care physician today and they recommended for her to be evaluated in the emergency department. She states that she was walking on a concrete pathway near her driveway when her left foot gave out which caused her to face plant. pt states that she has chronic foot drop of both feet and wears braces. She states that she was wearing her braces at the time but her left foot just gave out on her. She denies any chest pain, shortness of breath, dizziness prior to the fall. She denies any loss of consciousness. She states that this morning when she woke up she began to have "pain all over." When asked what is bothering her the most she states that she has head pain, facial pain, right rib pain, left-sided neck pain, left upper arm pain. She denies any vision changes, numbness, acute weakness. She denies any allergies to medications. - Related Data Home Medications Medication Instructions Recorded Confirmed Last Taken Acetaminophen [Acetaminophen TAB] 500 mg PO Q6HR PRN 07/30/18 07/30/18 08/21/18 20:00 Alendronate Sodium [Fosamax] 70 mg PO QWEEK 07/30/18 07/30/18 08/25/18 08:00 Atorvastatin Calcium [Lipitor] 40 mg PO DAILY 07/30/18 07/30/18 08/29/18 10:00 Ergocalciferol (Vitamin D2) 50,000 unit PO QWEEK 07/30/18 07/30/18 08/29/18 08:00 [Drisdol] Furosemide [Lasix] 20 mg PO QDAY 07/30/18 07/30/18 08/29/18 10:00 Losartan [Cozaar] 100 mg PO QDAY 07/30/18 07/30/18 08/28/18 12:00 Maprotiline HCl 25 mg PO QPM 07/30/18 07/30/18 08/29/18 08:00 Meclizine [Antivert] 12.5 mg PO BID PRN 07/30/18 07/30/18 Unknown Potassium Chloride [Klor-Con M20] 20 meq PO QDAY 07/30/18 07/30/18 08/29/18 10:00 Trihexyphenidyl HCl 5 mg PO BID 07/30/18 07/30/18 08/30/18 08:00 tiZANidine [Zanaflex 4mg TAB] 2 - 4 mg PO HS PRN 07/30/18 07/30/18 08/29/18 22:00 traMADoL [Ultram 50 MG tab] 50 mg PO Q6HR PRN 07/30/18 07/30/18 08/27/18 08:00 Previous Rx's Medication Instructions Recorded Last Taken Type Cyclobenzaprine [Flexeril 10 MG 5 mg PO Q8H PRN tablet 09/04/18 Unknown Rx TAB] Acetaminophen [Tylenol] 325 mg PO Q8HR PRN #14 capsule 07/03/19 Unknown Rx traMADoL [Ultram 50 MG tab] 50 mg PO Q8HR PRN #10 tablet 07/03/19 Unknown Rx Allergies Allergy/AdvReac Type Severity Reaction Status Date / Time No Known Allergies Allergy Verified 07/03/19 14:51 ED Review of Systems ROS: Stated complaint: FALL Other details as noted in HPI Comment: All other systems reviewed and negative ED Past Medical Hx - Past Medical History Hx Hypertension: Yes Hx Diabetes: Yes Additional medical history: Sleep apnea, "stress induced" muscle spasms " [facility] [place] - Surgical History Past Surgical History?: No - Social History Smoking Status: Never Smoker Substance Use Type: None - Medications Home Medications: Home Medications Medication Instructions Recorded Confirmed Last Taken Type Acetaminophen [Acetaminophen TAB] 500 mg PO Q6HR PRN 07/30/18 07/30/18 08/21/18 20:00 History Alendronate Sodium [Fosamax] 70 mg PO QWEEK 07/30/18 07/30/18 08/25/18 08:00 History Atorvastatin Calcium [Lipitor] 40 mg PO DAILY 07/30/18 07/30/18 08/29/18 10:00 History Ergocalciferol (Vitamin D2) 50,000 unit PO QWEEK 07/30/18 07/30/18 08/29/18 08:00 History [Drisdol] Furosemide [Lasix] 20 mg PO QDAY 07/30/18 07/30/18 08/29/18 10:00 History Losartan [Cozaar] 100 mg PO QDAY 07/30/18 07/30/18 08/28/18 12:00 History Maprotiline HCl 25 mg PO QPM 07/30/18 07/30/18 08/29/18 08:00 History Meclizine [Antivert] 12.5 mg PO BID PRN 07/30/18 07/30/18 Unknown History Potassium Chloride [Klor-Con M20] 20 meq PO QDAY 07/30/18 07/30/18 08/29/18 10:00 History Trihexyphenidyl HCl 5 mg PO BID 07/30/18 07/30/18 08/30/18 08:00 History tiZANidine [Zanaflex 4mg TAB] 2 - 4 mg PO HS PRN 07/30/18 07/30/18 08/29/18 22:00 History traMADoL [Ultram 50 MG tab] 50 mg PO Q6HR PRN 07/30/18 07/30/18 08/27/18 08:00 History Cyclobenzaprine [Flexeril 10 MG 5 mg PO Q8H PRN tablet 09/04/18 Unknown Rx TAB] Acetaminophen [Tylenol] 325 mg PO Q8HR PRN #14 capsule 07/03/19 Unknown Rx traMADoL [Ultram 50 MG tab] 50 mg PO Q8HR PRN #10 tablet 07/03/19 Unknown Rx ED Physical Exam - General Limitations: Physical Limitation General appearance: alert, in no apparent distress, other (thin, frail) - Head Head exam: Present: atraumatic, normocephalic - Eye Eye exam: Present: PERRL, EOMI, other (cataracts bilaterally). Absent: periorbital swelling, periorbital tenderness - ENT ENT exam: Present: mucous membranes moist, other (no bony facial TTP, no ecchymosis, no deformities, FROM of the TMJ, no nasal bone TTP, nasal septum is midline, no racoon eyes, no signs of entrapement) - Neck Neck exam: Present: normal inspection, tenderness (left sided C-spine paraspinal TTP and left sided trapezius TTP, no midline C-spine tenderness, chronic scoliosis of the spine, no step offs), full ROM, other - Respiratory Respiratory exam: Present: normal lung sounds bilaterally, chest wall tenderness (mild right anterior rib TTP, no ecchymosis, no deformity, no crepitus). Absent: respiratory distress, wheezes, rales, rhonchi, stridor, accessory muscle use, decreased breath sounds, prolonged expiratory - Cardiovascular Cardiovascular Exam: Present: regular rate, normal rhythm, normal heart sounds. Absent: systolic murmur, diastolic murmur, rubs, gallop - GI/Abdominal GI/Abdominal exam: Present: soft, normal bowel sounds. Absent: distended, tenderness, guarding, rebound, rigid - Extremities Exam Extremities exam: Present: other (no bony TTP of the BUE, FROM of the BUE, neurovascularly intact in the BUE) - Back Exam Back exam: Present: other (chronic scoliosis of the spine, no midline spinal or paraspinal T-spine or L-spine tenderness, no step offs). 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 Absent: motor sensory deficit - Psychiatric Psychiatric exam: Present: normal affect, normal mood - Skin Skin exam: Present: warm, dry, intact, normal color ED Course Vital Signs 07/03/19 07/03/19 07/03/19 15:43 16:01 20:53 Temperature 98.8 F 98.8 F 98.6 F Pulse Rate 100 H 102 H 76 Respiratory 20 20 16 Rate Blood Pressure 165/84 165/84 Blood Pressure 167/83 [Left] O2 Sat by Pulse 95 96 98 Oximetry ED Medical Decision Making - Radiology Data Radiology results: report reviewed CT THORACIC SPINE: 30 06/22/2019 INDICATION / CLINICAL INFORMATION: neck pain s/p fall. COMPARISON: None available. FINDINGS: CT images of the thoracic spine were obtained. Images are evaluated in the axial, coronal, and sagittal planes. Patient has a severe left convex scoliosis of the thoracolumbar spine. The bones are diffusely osteopenic. There is no CT evidence of acute traumatic injury. Vertebral body heights are w ell preserved. PARASPINAL STRUCTURES: Unremarkable IMPRESSION: No acute abnormality. Scoliosis. Osteopenia. All CT scans at this location are performed using dose reduction to ALARA by janice jiménez of automated exposure control. Signer Name: Juan Wilcox MD Signed: 07/03/2019 7:12 PM Workstation Name: [id number] Transcribed By: DON Dictated By: Juan Wilcox MD Electronically Authenticated By: Juan Wilcox MD Signed Date/Time: 07/03/191911 DD/ 09 TD/TT: CT LUMBAR SPINE: 07/03/2019 INDICATION / CLINICAL INFORMATION: neck pain s/p fall. Trauma COMPARISON: None available. FINDINGS: CT images of the lumbar spine were obtained. Images are evaluated in the axial, coronal, and sagittal planes. There is no evidence of acute abnormality. Patient has a pronounced scoliosis of the thoracolumbar spine. The bones are diffusely and prominently osteopenic. There is no evidence of compression deformity. Degenerative facet changes are prominent at all levels in the lumbar spine. PARASPINAL STRUCTURES: Unremarkable. IMPRESSION: No acute abnormality. Scoliosis. Osteopenia. All CT scans at this location are performed using dose reduction to ALARA by janice jiménez of automated exposure control. Signer Name: Juan Wilcox MD Signed: 07/03/2019 7:14 PM Workstation Name: [id number] Transcribed By: DON Dictated By: Juan Wilcox MD Electronically Authenticated By: Juan Wilcox MD Signed Date/Time: 07/03/191913 DD/ 11 TD/TT: CT CERVICAL SPINE: 07/03/2019 INDICATION / CLINICAL INFORMATION: neck pain s/p fall. COMPARISON: 07/30/2018 FINDINGS: CT images of the cervical spine were obtained. Images are evaluated in the axial, coronal, and sagittal planes. Comparison is made to the previous exam from 07/30/2018. Again seen is the severe kyphoscoliosis of the cervical and thoracic spine. There is no evidence of acute abnormality. Degenerative disc and facet changes are present throughout the cervical spine. Degenerative anterolisthesis is present at the C3-4 level. Degenerative disc space narrowing is present at C4-5, C5-6, and C6-7. The bones are diffusely osteopenic. CRANIOCERVICAL JUNCTION: Unremarkable. PARASPINAL STRUCTURES: Unremarkable IMPRESSION: No acute abnormality. No change when compared to the prior exam. All CT scans at this location are performed using dose reduction to ALARA by means of automated exposure control. Signer Name: Juan Wilcox MD Signed: 07/03/2019 7:10 PM Workstation Name: [id number] Transcribed By: DON Dictated By: Juan Wilcox MD Electronically Authenticated By: Juan Wilcox MD Signed Date/Time: 07/03/191909 DD/ 06 TD/TT: CT BRAIN: 07/03/2019 INDICATION / CLINICAL INFORMATION: Trauma. COMPARISON: 08/30/2018 FINDINGS: BRAIN/INTRACRANIAL STRUCTURES: Unenhanced CT images of the brain were obtained and compared to the prior exam from 08/30/2018. There is been no change. There is no evidence of acute abnormality. Ventricles and sulci are prominent in size, consistent with diffuse cerebral atrophy. There is no evidence of hemorrhage or mass. There are no abnormal extra-axial fluid collections. EXTRACRANIAL STRUCTURES: Unremarkable. IMPRESSION: No acute abnormality. All CT scans at this location are performed using dose reduction to ALARA by means of automated exposure control. Signer Name: Juan Wilcox MD Signed: 07/03/2019 7:07 PM Workstation Name: [id number] Transcribed By: DON Dictated By: Juan Wilcox MD Electronically Authenticated By: uJan Wilcox MD Signed Date/Time: 07/03/191906 DD/ 02 TD/TT: - Medical Decision Making Patient is a 74-year-old female presents emergency room with complaints of a fall that occurred 4 days ago. States that she called her primary care raina nuñez today and they recommended for her to be evaluated in the emergency department. She states that she was walking on a concrete pathway near her driveway when her left foot gave out which caused her to face plant. pt states that she has chronic foot drop of both feet and wears braces. She states that she was wearing her braces at the time but her left foot just gave out on her. She denies any chest pain, shortness of breath, dizziness prior to the fall. She denies any loss of consciousness. She states that this morning when she woke up she began to have "pain all over." When asked what is bothering her the most she states that she has head pain, facial pain, right rib pain, left-sided neck pain, left upper arm pain. She denies any vision changes, numbness, acute weakness. She denies any allergies to medications. initial vitals with mildly elevated HR which improved upon repeat. on exam: no bony facial TTP, no ecchymosis, no deformities, FROM of the TMJ, no nasal bone TTP, nasal septum is midline, no racoon eyes, no signs of entrapement, left sided C-spine paraspinal TTP and left sided trapezius TTP, no midline C-spine tenderness, chronic scoliosis of the spine, no step offs, mild right anterior rib TTP, no ecchymosis, no deformity, no crepitus, no bony TTP of the BUE, FROM of the BUE, neurovascularly intact in the BUE, chronic scoliosis of the spine, no midline spinal or paraspinal T-spine or L-spine tenderness, no step offs, normal finger to nose, normal heel to thompson, 5/5 strength in the BUE/BLE, sensation intact throughout, 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 imaging ordered prior to my examination secondary to pt stating she had pain all over and given her age and that she is very frail with chronic bone changes. CT C-spine, T-spine and L-spine: No acute abnormality.Scoliosis.Osteopenia. CT head: no acute abnormality. discussed imaging with pt, she states that she is already on medication for the osteopenia. pt given prescription for tylenol and tramadol to take as needed for her pain. advised pt to be careful while taking the tramadol secondary to potential for drowsiness and off balance, she verbalized understanding. advised pt Please take medication as prescribed as needed. Do not drive or operate heavy machinery while taking tramadol due to potential for drowsiness. May use ice pack, heating pad, rest, epsom salt bath. Follow-up with your primary care doctor in the next 2-3 days for reexamination. Return to the emergency room immediately for any new or worsening symptoms. - Differential Diagnosis strain, sprain fx, dislocation, disc herniation, SDH, ICH, skull fx, SAH Critical care attestation.: If time is entered above; I have spent that time in minutes in the direct care of this critically ill patient, excluding procedure time. ED Disposition Clinical Impression: Rib pain on right side, Neck pain, Facial pain, Left upper arm pain Fall with injury Qualifiers: Encounter type: initial encounter Qualified Code(s): W19.XXXA - Unspecified fall, initial encounter Minor head injury Qualifiers: Encounter type: initial encounter Qualified Code(s): S09.90XA - Unspecified injury of head, initial encounter Strain of left trapezius muscle Qualifiers: Encounter type: initial encounter Qualified Code(s): S46.812A - Strain of other muscles, fascia and tendons at shoulder and upper arm level, left arm, initial encounter Scoliosis Qualifiers: Scoliosis type: unspecified scoliosis Spinal region: unspecified Qualified Code(s): M41.9 - Scoliosis, unspecified Osteopenia Qualifiers: Osteopenia location: unspecified Qualified Code(s): M85.80 - Other specified disorders of bone density and structure, unspecified site Disposition: TO HOME OR SELFCARE Is pt being admited?: No Does the pt Need Aspirin: No Condition: Stable Instructions: Muscle Strain (ED), Minor Head Injury (ED), Arthralgia (ED) Additional Instructions: Please take medication as prescribed as needed. Do not drive or operate heavy machinery while taking tramadol due to potential for drowsiness. May use ice pack, heating pad, rest, epsom salt bath. Follow-up with your primary care doctor in the next 2-3 days for reexamination. Return to the emergency room immediately for any new or worsening symptoms. Prescriptions: Acetaminophen [Tylenol] 325 mg PO Q8HR PRN #14 capsule PRN Reason: Pain, Moderate (4-6) traMADoL [Ultram 50 MG tab] 50 mg PO Q8HR PRN #10 tablet PRN Reason: Pain , Severe (7-10) Referrals: NITHYA LEON JR, MD [Primary Care Provider] - 2-3 Days Time of Disposition: 20:28 Print Language: TURKMEN
[2019-07-03 20:54] VITALS: BP 167/83
== END 2019-07-03 20:58 | disposition home or self-care (01) ==
LOC: ED 14:36
DX: S46.812A Strain of other muscles, fascia and tendons at shoulder and upper arm level, left arm, initial encounter (principal); S09.90XA Unspecified injury of head, initial encounter; M85.80 Other specified disorders of bone density and structure, unspecified site; M41.9 Scoliosis, unspecified; R07.81 Pleurodynia; I10 Essential (primary) hypertension; E11.9 Type 2 diabetes mellitus without complications; R51 Headache; Z79.899 Other long term (current) drug therapy; W18.39XA Other fall on same level, initial encounter; Y93.89 Activity, other specified; Y92.89 Other specified places as the place of occurrence of the external cause; Y99.8 Other external cause status
CPT/HCPCS: 70450; 72125; 72128; 72131

== ENCOUNTER 2019-12-31 21:39 | Emergency (ER) | payer MEDICARE ==
--- NOTE | 2019-12-31 23:34 | XRay Report ---
[facility] ONE VIEW INDICATION / CLINICAL INFORMATION: Pelvic pain/injury after fall. COMPARISON: None available. FINDINGS: BONES and JOINT(S): No acute fracture or subluxation. No significant arthritis. SOFT TISSUES: No significant abnormality. ADDITIONAL FINDINGS: None. IMPRESSION: 1. No acute findings. Signer Name: Rosalio Madison MD Signed: 12/31/2019 11:30 PM Workstation Name: [id number]
--- NOTE | 2019-12-31 23:44 | Cat Scan Report ---
CT HEAD WITHOUT CONTRAST INDICATION : Head injury after fall. TECHNIQUE: Axial, coronal and sagittal CT imaging was performed from the skull apex through the skul l base without contrast. All CT scans at this location are performed using CT dose reduction for ALA RA by means of automated exposure control. COMPARISON: CT head without contrast from 07/03/2019. FINDINGS: PARENCHYMA: No mass, midline shift, hemorrhage, extraaxial collection or acute territorial infarctio n. Mild generalized atrophy with probable chronic microvascular ischemic changes along the periventr icular white matter. VENTRICLES: Symmetric and normal in size. SOFT TISSUES: No significant abnormality of the included soft tissues/orbits. BONES: No acute osseous abnormality. SINUSES: No significant abnormality. ADDITIONAL FINDINGS: None. IMPRESSION: 1. No acute intracranial abnormality. Signer Name: Rosalio Madison MD Signed: 12/31/2019 11:39 PM Workstation Name: [id number]
--- NOTE | 2019-12-31 23:51 | Cat Scan Report ---
CT CERVICAL SPINE WITHOUT CONTRAST INDICATION: Head/neck injury after fall. COMPARISON: CT cervical spine without contrast from 07/03/2019. TECHNIQUE: Axial, coronal and sagittal CT imaging of the cervical spine without contrast was performe d. All CT scans at this location are performed using CT dose reduction for ALARA by means of automat ed exposure control. FINDINGS: VERTEBRAE:No acute fracture. Moderate Dextroscoliosis with grade 1 anterolisthesis at C3-C4. DISC SPACES: Multilevel [id number] discogenic degenerative changes. FACET JOINTS:Multilevel left facet hypertrophy, most notable at C2-C3. CENTRAL CANAL: No significant central canal stenosis. Similar moderate left neural foraminal narrowin g at C2-C3. SOFT TISSUES:No significant abnormality. LUNG APICES: No acute abnormality. Similar probable chronic parenchymal changes bilateral. ADDITIONAL FINDINGS: None IMPRESSION: 1. No acute findings. 2. Additional findings as above are similar to the prior CT from 07/03/2019. Signer Name: Rosalio Madison MD Signed: 12/31/2019 11:46 PM Workstation Name: [id number]
[2020-01-01 00:16] LABS: Basophils % (Auto) 0.2 % (0.0-1.8); Eosinophils % (Auto) 0.2 % (0.0-4.3); Hematocrit 35.6 % (30.3-42.9); Hemoglobin 11.9 gm/dl (10.1-14.3); Lymphocytes # (Auto) 0.7 K/mm3 (1.2-5.4); Lymphocytes % (Auto) 9.5 % (13.4-35.0); Mean Corpuscular HGB Conc 33 % (30-34); Mean Corpuscular Volume 94 fl (79-97); Monocytes # (Auto) 0.4 K/mm3 (0.0-0.8); Monocytes % (Auto) 4.7 % (0.0-7.3); Platelet Count 242 K/mm3 (140-440); Red Blood Count 3.78 M/mm3 (3.65-5.03)
[2020-01-01 00:17] LABS: Alanine Aminotransferase 21 units/L (7-56); Albumin 4.4 g/dL (3.9-5); Blood Urea Nitrogen 17 mg/dL (7-17); Calcium 9.5 mg/dL (8.4-10.2); Hemolysis Index 9
[2020-01-01 00:19] LABS: BUN/Creatinine Ratio 28
--- NOTE | 2020-01-01 01:19 | Emergency Department Report ---
ED General Adult HPI - General Chief complaint: Fall Stated complaint: FALL Time Seen by Provider: 12/31/19 21:58 Source: patient, EMS Mode of arrival: Stretcher Limitations: No Limitations - History of Present Illness Initial comments: The patient presents to the emergency department via EMS for a fall. Patient states she has had loose stools all day long and sat down on the floor because she felt weak. Patient adamantly denies that she passed out but the patient cannot explain all the events to me. Patient is not quite sure of the timeframe that she was on the floor. Patient does state that she remembers going from standing to getting on the floor. She denies chest pain but does endorse some neck and hip pain. -: Sudden Radiation: non-radiation Severity scale (0 -10): 3 Quality: aching Consistency: constant Improves with: none Worsens with: none Associated Symptoms: denies other symptoms Treatments Prior to Arrival: none - Related Data Home Medications Medication Instructions Recorded Confirmed Last Taken Acetaminophen [Acetaminophen TAB] 500 mg PO Q6HR PRN 07/30/18 07/30/18 08/21/18 20:00 Alendronate Sodium [Fosamax] 70 mg PO QWEEK 07/30/18 07/30/18 08/25/18 08:00 Atorvastatin Calcium [Lipitor] 40 mg PO DAILY 07/30/18 07/30/18 08/29/18 10:00 Ergocalciferol (Vitamin D2) 50,000 unit PO QWEEK 07/30/18 07/30/18 08/29/18 08:00 [Drisdol] Furosemide [Lasix] 20 mg PO QDAY 07/30/18 07/30/18 08/29/18 10:00 Losartan [Cozaar] 100 mg PO QDAY 07/30/18 07/30/18 08/28/18 12:00 Maprotiline HCl 25 mg PO QPM 07/30/18 07/30/18 08/29/18 08:00 Meclizine [Antivert] 12.5 mg PO BID PRN 07/30/18 07/30/18 Unknown Potassium Chloride [Klor-Con M20] 20 meq PO QDAY 07/30/18 07/30/18 08/29/18 10:00 Trihexyphenidyl HCl 5 mg PO BID 07/30/18 07/30/1808/30/19 08:00 tiZANidine [Zanaflex 4mg TAB] 2 - 4 mg PO HS PRN 07/30/18 07/30/18 08/29/18 22:00 traMADoL [Ultram 50 MG tab] 50 mg PO Q6HR PRN 07/30/18 07/30/18 08/27/18 08:00 Previous Rx's Medication Instructions Recorded Last Taken Type Cyclobenzaprine [Flexeril 10 MG 5 mg PO Q8H PRN tablet 09/04/18 Unknown Rx TAB] Acetaminophen [Tylenol] 325 mg PO Q8HR PRN #14 capsule 07/03/19 Unknown Rx traMADoL [Ultram 50 MG tab] 50 mg PO Q8HR PRN #10 tablet 07/03/19 Unknown Rx Allergies Allergy/AdvReac Type Severity Reaction Status Date / Time No Known Allergies Allergy Verified 07/03/19 14:51 ED Review of Systems ROS: Stated complaint: FALL Other details as noted in HPI Comment: All other systems reviewed and negative Constitutional: denies: chills, fever Eyes: denies: eye pain, eye discharge, vision change ENT: denies: ear pain, throat pain Respiratory: denies: cough, shortness of breath, wheezing Cardiovascular: denies: chest pain, palpitations Endocrine: no symptoms reported Gastrointestinal: denies: abdominal pain, nausea, diarrhea Genitourinary: denies: urgency, dysuria, discharge Musculoskeletal: denies: back pain, joint swelling, arthralgia Skin: denies: rash, lesions Neurological: denies: headache, weakness, paresthesias Psychiatric: denies: anxiety, depression Hematological/Lymphatic: denies: easy bleeding, easy bruising ED Past Medical Hx - Past Medical History Previous Medical History?: Yes Hx Hypertension: Yes Hx Diabetes: Yes Additional medical history: Sleep apnea, "stress induced" muscle spasms " SX'S [employer] [place] - Surgical History Past Surgical History?: No - Social History Smoking Status: Never Smoker Substance Use Type: None - Medications Home Medications: Home Medications Medication Instructions Recorded Confirmed Last Taken Type Acetaminophen [Acetaminophen TAB] 500 mg PO Q6HR PRN 07/30/18 07/30/18 08/21/18 20:00 History Alendronate Sodium [Fosamax] 70 mg PO QWEEK 07/30/18 07/30/18 08/25/18 08:00 History Atorvastatin Calcium [Lipitor] 40 mg PO DAILY 07/30/18 07/30/18 08/29/18 10:00 History Ergocalciferol (Vitamin D2) 50,000 unit PO QWEEK 07/30/18 07/30/18 08/29/18 08:00 History [Drisdol] Furosemide [Lasix] 20 mg PO QDAY 07/30/18 07/30/18 08/29/18 10:00 History Losartan [Cozaar] 100 mg PO QDAY 07/30/18 07/30/18 08/28/18 12:00 History Maprotiline HCl 25 mg PO QPM 07/30/18 07/30/18 08/29/18 08:00 History Meclizine [Antivert] 12.5 mg PO BID PRN 07/30/18 07/30/18 Unknown History Potassium Chloride [Klor-Con M20] 20 meq PO QDAY 07/30/18 07/30/18 08/29/18 10:00 History Trihexyphenidyl HCl 5 mg PO BID 07/30/18 07/30/18 08/30/18 08:00 History tiZANidine [Zanaflex 4mg TAB] 2 - 4 mg PO HS PRN 07/30/18 07/30/18 08/29/18 22:00 History traMADoL [Ultram 50 MG tab] 50 mg PO Q6HR PRN 07/30/18 07/30/18 08/27/18 08:00 History Cyclobenzaprine [Flexeril 10 MG 5 mg PO Q8H PRN tablet 09/04/18 Unknown Rx TAB] Acetaminophen [Tylenol] 325 mg PO Q8HR PRN #14 capsule 07/03/19 Unknown Rx traMADoL [Ultram 50 MG tab] 50 mg PO Q8HR PRN #10 tablet 07/03/19 Unknown Rx ED Physical Exam - General Limitations: No Limitations General appearance: alert, in no apparent distress - Head Head exam: Present: atraumatic, normocephalic - Eye Eye exam: Present: normal appearance - ENT ENT exam: Present: mucous membranes moist - Neck Neck exam: Present: normal inspection, other (Para cervical tenderness on palpation) - Respiratory Respiratory exam: Present: normal lung sounds bilaterally. Absent: respiratory distress - Cardiovascular Cardiovascular Exam: Present: regular rate, normal rhythm. Absent: systolic murmur, diastolic murmur, rubs, gallop - GI/Abdominal GI/Abdominal exam: Present: soft, normal bowel sounds. Absent: distended, tenderness - Extremities Exam Extremities exam: Present: normal inspection - Back Exam Back exam: Present: normal inspection - Neurological Exam Neurological exam: Present: alert, oriented X3, CN II-XII intact. Absent: motor sensory deficit - Psychiatric Psychiatric exam: Present: normal affect, normal mood - Skin Skin exam: Present: warm, dry, intact, normal color. Absent: rash ED Course Vital Signs 12/31/19 12/31/19 12/31/19 21:46 21:50 22:00 Temperature 97.9 F Pulse Rate 98 H 94 H Respiratory 16 11 L Rate Blood Pressure 151/67 151/67 151/67 O2 Sat by Pulse 96 Oximetry 12/31/19 12/31/19 12/31/19 22:10 22:15 22:30 Temperature Pulse Rate 92 H 85 Respiratory 16 11 L 22 Rate Blood Pressure 144/68 139/63 O2 Sat by Pulse 94 Oximetry 12/31/19 12/31/19 22:45 23:00 Temperature Pulse Rate 86 82 Respiratory 14 21 Rate Blood Pressure 146/65 141/76 O2 Sat by Pulse 95 96 Oximetry ED Medical Decision Making - Lab Data Result diagrams: 12/31/19 23:37 12/31/19 23:37 - Radiology Data Radiology results: report reviewed - Medical Decision Making Results discussed with patient Critical care attestation.: If time is entered above; I have spent that time in minutes in the direct care of this critically ill patient, excluding procedure time. ED Disposition Clinical Impression: Fatigue, Fall Disposition: DC-01 TO HOME OR SELFCARE Is pt being admited?: No Does the pt Need Aspirin: No Condition: Stable Instructions: Fatigue (ED), Weakness (ED), Fall Prevention (ED) Additional Instructions: return if worse Referrals: ELOINA BOLAND MD [Staff Physician] - 3-5 Days Time of Disposition: 01:25
[2020-01-01 02:41] VITALS: BP 159/81
[2020-01-01 02:47] LABS: Bilirubin,Urine NEG (Negative); Blood,Urine MOD (Negative); Calcium Oxalate Crystals,Urine 1+; Color,Urine Yellow (Yellow); Protein,Urine <15 mg/dL mg/dL (Negative); Urobilinogen,Urine < 2.0 mg/dL (<2.0)
== END 2020-01-01 02:49 | disposition home or self-care (01) ==
LOC: ED 21:39
DX: R53.83 Other fatigue (principal); M54.2 Cervicalgia; R53.1 Weakness; M25.559 Pain in unspecified hip; I10 Essential (primary) hypertension; E11.9 Type 2 diabetes mellitus without complications; Z79.899 Other long term (current) drug therapy
CPT/HCPCS: 36415; 70450; 72125; 72170; 80053; 81001; 82550; 85025

== ENCOUNTER 2021-04-14 06:59 | Emergency (ER) | payer MEDICARE ==
--- NOTE | 2021-04-14 08:13 | Emergency Department Report ---
ED Fall HPI - General Chief Complaint: Fall Stated Complaint: GROUND LEVEL FALL Time Seen by Provider: 04/14/21 07:15 Source: patient, EMS Mode of arrival: Stretcher - History of Present Illness Initial Comments: 75-year-old female, history of scoliosis, hypertension, chronic pain, presents to ED from [facility] following ground-level fall. Negative LOC. Patient reporting some pain to her forehead. Patient states she was attempting to go to the bathroom, but was not using her walker. MD Complaint: fall -: This morning Fall From: standing Place Fall Occurred: [facility] Loss of Consciousness: none Prolonged Down Time?: no Symptoms Prior to Fall: none Location: head Severity: mild Quality: aching Context: history of frequent falls Associated Symptoms: headache. denies: neck pain, numbness, weakness, chest paint, shortness of breath, abdominal pain - Related Data Home Medications Medication Instructions Recorded Confirmed Last Taken Alendronate Sodium [Fosamax] 70 mg PO QWEEK 07/30/18 04/01/21 08/25/18 08:00 Atorvastatin Calcium [Lipitor] 40 mg PO DAILY 07/30/18 04/01/21 08/29/18 10:00 Venlafaxine HCl [Effexor Xr] 37.5 mg PO QAM 04/06/21 04/06/21 Unknown Previous Rx's Medication Instructions Recorded Last Taken Type Losartan [Cozaar] 100 mg PO QDAY tablet 04/12/21 Unknown Rx Metoprolol [Lopressor TAB] 12.5 mg PO BID tablet 04/12/21 Unknown Rx Allergies Allergy/AdvReac Type Severity Reaction Status Date / Time prednisone AdvReac hallucinati Verified 04/14/21 07:07 ons ED Review of Systems ROS: Stated complaint: GROUND LEVEL FALL Other details as noted in HPI Comment: All other systems reviewed and negative Neurological: headache ED Past Medical Hx - Past Medical History Hx Hypertension: Yes Hx Diabetes: Yes (diet controlled) Additional medical history: Sleep apnea, "stress induced" muscle spasms " SX'[place] - Social History Smoking Status: Unknown if ever smoked - Medications Home Medications: Home Medications Medication Instructions Recorded Confirmed Last Taken Type Alendronate Sodium [Fosamax] 70 mg PO QWEEK 07/30/18 04/01/21 08/25/18 08:00 History Atorvastatin Calcium [Lipitor] 40 mg PO DAILY 07/30/18 04/01/21 08/29/18 10:00 History Venlafaxine HCl [Effexor Xr] 37.5 mg PO QAM 04/06/21 04/06/21 Unknown History Losartan [Cozaar] 100 mg PO QDAY tablet 04/12/21 Unknown Rx Metoprolol [Lopressor TAB] 12.5 mg PO BID tablet 04/12/21 Unknown Rx ED Physical Exam - General Limitations: No Limitations General appearance: alert, in no apparent distress - Head Head exam: Present: atraumatic, normocephalic - Eye Eye exam: Present: normal appearance, EOMI - ENT ENT exam: Present: mucous membranes moist - Neck Neck exam: Present: normal inspection - Respiratory Respiratory exam: Present: normal lung sounds bilaterally. Absent: respiratory distress - Cardiovascular Cardiovascular Exam: Present: regular rate, normal rhythm - GI/Abdominal GI/Abdominal exam: Present: soft. Absent: distended, tenderness - Extremities Exam Extremities exam: Present: normal inspection - Neurological Exam Neurological exam: Present: alert, oriented X3 - Psychiatric Psychiatric exam: Present: normal affect, normal mood - Skin Skin exam: Present: warm, dry, intact, normal color ED Course Vital Signs 04/14/21 04/14/21 04/14/21 07:05 07:31 07:39 Temperature 98.4 F Pulse Rate 85 86 Respiratory 16 20 Rate Blood Pressure 158/74 Blood Pressure 164/101 [Right] O2 Sat by Pulse 99 99 98 Oximetry 04/14/21 04/14/21 04/14/21 08:00 08:31 09:01 Temperature Pulse Rate 89 87 90 Respiratory 19 16 22 Rate Blood Pressure 169/73 169/73 169/73 Blood Pressure [Right] O2 Sat by Pulse 99 99 100 Oximetry 04/14/21 04/14/21 09:31 10:00 Temperature Pulse Rate 90 94 H Respiratory 20 15 Rate Blood Pressure 169/73 169/73 Blood Pressure [Right] O2 Sat by Pulse 99 98 Oximetry ED Medical Decision Making - Radiology Data Radiology results: report reviewed, image reviewed - Medical Decision Making 75-year-old female from [facility] presents to ED with ground-level fall. Patient awake and alert. CT head and C-spine are negative for any acute abnormalities. Patient will be discharged back to [facility]. - Differential Diagnosis Contusion, intracranial abnormality, fracture Critical care attestation.: If time is entered above; I have spent that time in minutes in the direct care of this critically ill patient, excluding procedure time. ED Disposition Clinical Impression: Fall, Head injury Disposition: 01 HOME / SELF CARE / HOMELESS Is pt being admited?: No Condition: Stable Instructions: Head Injury, Adult Referrals: PRIMARY CARE, [Primary Care Provider] - 3-5 Days Time of Disposition: 09:04
--- NOTE | 2021-04-14 08:50 | Cat Scan Report ---
CT HEAD WITHOUT CONTRAST INDICATION : fall. Head injury TECHNIQUE: Axial imaging performed from the skull apex through the skull base without the use of con trast. Sagittal and coronal reformatted images. All CT scans at this location are performed using C T dose reduction for ALARA by means of automated exposure control. COMPARISON: 04/01/2021 FINDINGS: Parenchyma: No acute intracranial hemorrhage or parenchymal abnormality. Mild nonspecific chronic wh ite matter changes and mild cortical volume loss are stable. No chronic infarct or extra-axial fluid collection. Ventricles: Ventricles are normal in size and appear symmetric. Bones: No acute osseous abnormality. Mild right frontal soft tissue swelling is noted. Sinuses: Sinuses and mastoid air cells are clear. Soft tissues: Soft tissues including the orbits appear normal. IMPRESSION: Right frontal soft tissue swelling. Stable volume loss and chronic white matter changes. No acute intracranial process is identified. CT CERVICAL SPINE WITHOUT CONTRAST INDICATION: Fall, injury. TECHNIQUE: Axial imaging performed through the cervical spine without the use of contrast. Sagittal and coronal reconstructed images were also reviewed. All CT scans at this location are performed us ing CT dose reduction for ALARA by means of automated exposure control. COMPARISON: None FINDINGS: Alignment: There is reversal of the normal cervical lordosis. Mild dextrocurvature of the cervical s pine is demonstrated on the coronal images. No evidence for subluxation. Bones: There is no acute osseous abnormality. 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 Mild osteopenia is suspected. Soft tissues: No acute or significant incidental soft tissue abnormality. IMPRESSION: Osteopenia. Scoliosis with advanced multilevel degenerative changes. No acute cervical i njury is appreciated. Signer Name: Ramon Puente Jr, MD Signed: 04/14/2021 8:45 AM Workstation Name: [id number]
[2021-04-14 10:36] VITALS: BP 169/73
== END 2021-04-14 10:00 | disposition home or self-care (01) ==
LOC: ED 06:59
DX: S09.90XA Unspecified injury of head, initial encounter (principal); I10 Essential (primary) hypertension; E11.9 Type 2 diabetes mellitus without complications; Z88.0 Allergy status to penicillin; Z79.899 Other long term (current) drug therapy; W18.39XA Other fall on same level, initial encounter; Y93.89 Activity, other specified; Y92.89 Other specified places as the place of occurrence of the external cause; Y99.8 Other external cause status
CPT/HCPCS: 70450; 72125; 99284